=== PATIENT | male | born 1940 | race Caucasian/White ===

== ENCOUNTER 2016-12-01 03:40 | Emergency (ER) | payer MEDICARE, BC ==
[2016-12-01] MEDS ORDERED: SODIUM CHLORIDE 0.9% 1000ML 1,000 ML IVS ONE (04:05)
--- NOTE | 2016-12-01 04:11 | ED.PDOC ---
History of Present Illness - General Chief Complaint: Neuro Symptoms/Deficits Stated Complaint: ALTERED MENTAL STATUS Time Seen by Provider: 12/01/16 04:04 Source: patient, family Exam Limitations: no limitations Additional Information: 3 D OF HALLUCINATING, WORSENING OVER PAST 3 D. WAS TALKING ABOUT BEING AT THE [employer] TONIGHT. NO KNOWN PSYCH HX OF HALLUCINATIONS. STATES HE FELL AND HIT HEAD 1 WK AGO BUT WAS FINE FOR 4 D AFTERWARD. DENIES ETOH OR ILLICITS. HE TAKES 2 NORCO QDAY FOR LBP. SHE STATES HIS MOTHER DEVELOPED DEMENTIA IN HER 60'S UNTIL IN 90'S. - History of Present Illness Allergies/Adverse Reactions: Allergies Methotrexate Allergy (Verified 12/01/16 03:49) Home Medications: Ambulatory Orders Amoxicillin & Pot Clavulanate [Augmentin] 875 mg PO BID #20 tab 12/01/16 Review of Systems - Review of Systems Constitutional: States: no symptoms reported EENTM: States: no symptoms reported Respiratory: States: cough. Denies: short of breath Cardiology: States: no symptoms reported Gastrointestinal/Abdominal: States: no symptoms reported Genitourinary: States: no symptoms reported Musculoskeletal: States: no symptoms reported Skin: States: no symptoms reported Neurological: Denies: headache, paresthesia, pre-existing deficit Endocrine: States: no symptoms reported Hematologic/Lymphatic: States: no symptoms reported All other Systems: Reviewed and Negative Past Medical History (General) - Patient Medical History Hx Seizures: No Hx Asthma: No Hx of COPD: No Hx Cardiac Disorders: Yes Hx Congestive Heart Failure: No Hx Pacemaker: No Hx Hypertension: Yes Hx Diabetes: Yes Hx Cancer: No Hx Hepatitis C: No - Vaccination History Hx Tetanus, Diphtheria Vaccination: No Hx Influenza Vaccination: Yes Hx Pneumococcal Vaccination: Yes Immunizations Up to Date: No - Social History Hx Alcohol Use: Yes - OCC Hx Substance Use: No Family Medical History - Family History Mother Family History: Unknown Physical Exam - Physical Exam General Appearance: Alert, Comfortable Eye Exam: bilateral normal ENT Exam: normal ENT inspection, hearing grossly normal Neck: non-tender, full range of motion Respiratory: other - LUNGS CLEAR BUT DIMINISHED ON BL BASES. 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 CT HEAD SINUSITIS (NO STROKE OR MASS). STARTING AUGMENTIN. CBC - LEUKOCYTOSIS ACUTE DELIRIUM - D/T INFECTION. ( STATES SIMILAR DELIRIUM IN PAST WHEN DEVELOPED IFXN.) CMP - ARF, DEHYDRATION. BOLUS IN PROCESS. ABX. CLOSE F/U W/ PCP. SAFE FOR DC TO HOME WITH , WHO IS PRESENT. - EKG/XRAY/CT CT Ordered: Yes Departure - Departure Clinical Impression: Sinusitis, acute, Dehydration, Leukocytosis, Acute renal failure (ARF), Delirium due to another medical condition Disposition: Discharge to Home or Self Care Condition: Good Departure Forms: ED Discharge - Pt. Copy, Patient Portal Self Enrollment Instructions: Delirium Diet: regular diet Activity: increase activity as tolerated Referrals: Regis Page III, MD [Primary Care Provider] - 1-2 Days Prescriptions: Amoxicillin & Pot Clavulanate [Augmentin] 875 mg PO BID #20 tab Home Medications: Ambulatory Orders Amoxicillin & Pot Clavulanate [Augmentin] 875 mg PO BID #20 tab 12/01/16
--- NOTE | 2016-12-01 04:21 | RAD ---
Clinical History : diminished lung sounds, and cold/congestion , MAIN Exam : Portable AP view of the chest 12/01/2016 3:58 AM CDT Comparisons : PA and lateral views of the chest March 09, 2012 Findings : The lungs are clear without focal consolidation or pleural effusion. The heart is normal in size. The mediastinal contours are normal in appearance. There are vascular calcifications along the aortic arch. There is a vertebral body spacer device in the mid thoracic spine. The rest of the osseous structures are normal in appearance. Limited evaluation of the upper abdomen demonstrates no gross abnormalities. Impression: 1. No acute cardiopulmonary disease. 2. Stable thoracic spine hardware. Electronically signed by: Jairon Hua MD 12/01/2016 4:20 AM CDT
--- NOTE | 2016-12-01 04:25 | CT ---
Clinical History : fell a week ago, hallucinations today , MAIN Exam : CT Head without contrast 12/01/2016 3:50 AM CDT Comparisons : none. Technique : Volumetric CT acquisition was performed through the brain. Images in the axial, coronal, and sagittal planes were presented for interpretation. This exam was performed according to our departmental dose-optimization program, which includes automated exposure control, adjustment of the mA and/or kV according to patient size and/or use of iterative reconstruction technique. Radiation dose : DLP-773.97 Findings: The soft tissue structures of the face, scalp, and orbits are normal. The globes remain intact. There is circumferential mucosal thickening within the bilateral maxillary sinuses and ethmoid air cells. There is also mucosal thickening throughout the sphenoid sinuses.. The calvarium remains intact . There is no acute intracranial hemorrhage, midline shift, or mass effect. The ventricles are normal in size and the posterior fossa structures are normal in appearance. There is mild generalized brain atrophy. There are moderate periventricular and subcortical white matter changes throughout the bilateral cerebral hemispheres. Limited evaluation of the vasculature demonstrates no gross abnormalities. There is no CT evidence of acute infarction. Impression: 1. No acute intracranial process. 2. Generalized brain atrophy and small vessel ischemic changes. 3. Sinus disease. Electronically signed by: Jairon Hua MD 12/01/2016 4:24 AM CDT
[2016-12-01] MEDS ORDERED: AMOXICILLIN & POT CLAVULANATE 875 MG TAB PO ONE (05:44)
[2016-12-01] MEDS ORDERED: cefTRIAXone SODIUM 1 GM VIAL IM ONE (05:56)
[2016-12-01] MEDS ORDERED: cefTRIAXone SODIUM 1 GM VIAL ONE (05:57)
[2016-12-01] MEDS ORDERED: LIDOCAINE 1% 10 ML VIAL INJ ONE (05:58)
[2016-12-01 06:24] VITALS: BP 109/71; TEMP 99.2; O2SAT 96
== END 2016-12-01 06:28 | disposition home or self-care (01) ==
LOC: ER 03:40
DX: J01.90 Acute sinusitis, unspecified (principal); D72.829 Elevated white blood cell count, unspecified; E86.0 Dehydration; N17.9 Acute kidney failure, unspecified; F05 Delirium due to known physiological condition; I10 Essential (primary) hypertension; E11.9 Type 2 diabetes mellitus without complications; Z88.8 Allergy status to other drugs, medicaments and biological substances
CPT/HCPCS: 70450; 71010; 80053; 80307; 85025; 93005; J0696; J7030

== ENCOUNTER 2016-12-01 08:47 | Inpatient (IN) | payer MEDICARE, BC ==
--- NOTE | 2016-12-01 09:12 | ED.PDOC ---
History of Present Illness - General Chief Complaint: Neuro Symptoms/Deficits Stated Complaint: altered mental status Time Seen by Provider: 12/01/16 09:11 Source: family Exam Limitations: no limitations - History of Present Illness Initial Comments: Mr. Alvaro Waters 76 y/o male with history of CAD,Polymyalgia Rheumatica DM on insulin Brought back by after he was sent home last night from er with Dx of sinusitis,leukocytosis,delirium and ststed once home he was stating that children was soaking their house wet with water spray tearing up their carpets as well as their fence and told his to call up the tailor women's garment alteration.Prior to the first time he was brought to er earlier he was throwing his insulin syringe and insulin vial as mentioning that he saw kids playing and nothing was there.Last week fell and hit his head but no loc,felt fine no medical attention done denies any symptoms until 3 days ago when he started seeing things as mentioned above.Had same symptoms 2 year ago according to and got better.Blood sugar taken by ems was normal. 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 Home Medications: Ambulatory Orders Amoxicillin & Pot Clavulanate [Augmentin] 875 mg PO BID #20 tab 12/01/16 Aspirin [Aspirin Adult Low Dose] 81 mg PO DAILY 12/01/16 Atenolol [Tenormin] 25 mg PO SUWE 12/01/16 Atorvastatin Calcium [Lipitor] 10 mg PO SUWE 12/01/16 Clopidogrel Bisulfate [Plavix] 75 mg PO DAILY 12/01/16 Duloxetine HCl [Cymbalta] 60 mg PO BID 12/01/16 HYDROcodone 10MG/APAP 325MG [Hancock 10/325] 1 tab PO Q4HR PRN 12/01/16 Insulin Glargine [Lantus Solostar] 30 unit SC BEDTIME 12/01/16 Insulin Regular (Human) [Novolin R U-100] 6 unit SUBCU TIDFD 12/01/16 Prednisone 5 - 10 mg PO DAILY 12/01/16 Review of Systems - Review of Systems Constitutional: States: no symptoms reported EENTM: States: no symptoms reported Respiratory: States: no symptoms reported Cardiology: States: no symptoms reported Gastrointestinal/Abdominal: States: no symptoms reported Genitourinary: States: no symptoms reported Musculoskeletal: States: no symptoms reported Skin: States: no symptoms reported Neurological: States: see HPI Endocrine: States: no symptoms reported Hematologic/Lymphatic: States: no symptoms reported Past Medical History (General) - Patient Medical History Hx Seizures: No Hx Asthma: No Hx of COPD: No Hx Cardiac Disorders: Yes Hx Congestive Heart Failure: No Hx Pacemaker: No Hx Hypertension: Yes Hx Diabetes: Yes Hx Cancer: No Hx Hepatitis C: No 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 Hx Other - free text: peripheral artery disease Surgical History: other Other Surgeries:: thoracic spine,cardiac stent,stent femoral artery - Vaccination History Hx Tetanus, Diphtheria Vaccination: No Hx Influenza Vaccination: Yes Hx Pneumococcal Vaccination: Yes - Social History Hx Tobacco Use: No Hx Chewing Tobacco Use: No Hx Alcohol Use: Yes - OCC Hx Substance Use: No - Activities of Daily Living Patient Lives Alone: No - home Family Medical History - Family History Mother Family History: Unknown Hx Family Cancer: Yes - brother Hx Family;Other: Rheumatoid arthritis-sister;mom -dementia Physical Exam - Physical Exam General Appearance: Alert, No apparent distress Eye Exam: bilateral normal, bilateral other - matting both eyes ENT Exam: normal ENT inspection, hearing grossly normal, TMs normal, pharynx normal Neck: non-tender, full range of motion, supple, normal inspection Respiratory: chest non-tender, lungs clear, normal breath sounds, no respiratory distress Cardiovascular/Chest: normal peripheral pulses, regular rate, rhythm, no edema, no gallop, no JVD, no murmur Peripheral Pulses: radial,right: 2+, radial,left: 2+ Gastrointestinal/Abdominal: normal bowel sounds, non tender, soft, no organomegaly, no pulsatile mass Back Exam: normal inspection, no CVA tenderness, no vertebral tenderness Extremities Exam: non-tender, normal range of motion, no evidence of injury Mental Status: alert, oriented x 3, 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 Exam: normal hearing, normal speech, PERRL Motor/Sensory: no motor deficit, no sensory deficit, no pronator drift DTR: 4+: Biceps, left, Biceps, right Skin Exam: normal color, warm/dry Progress - Results/Orders Results/Orders: 12/01/16 08:54 Catheter:Straight .ONCE 12/01/16 09:30 BLOOD CULTURE Stat 12/01/16 09:46 Lumbar Puncture,Assist ONCE 12/01/16 11:55 CSF CULTURE Stat 12/01/16 12:22 GRAM STAIN Stat 12/01/16 12:31 Sodium Chloride 0.9% 500Ml [NS 500ml] 500 ml IVS .QD 12/01/16 12:47 Vancomycin HCl Inj 1,000 mg Sodium Chloride 0.9% 250Ml [NS 250ml] 250 ml IVPB ONCE 12/01/16 13:00 Acyclovir Sodium Injection [Zovirax Injection] 1,000 mg Sodium Chloride 0.9% 250Ml [NS 250ml] 250 ml IVPB Q8H Laboratory Results WBC 13.8 K/mm3 (4.8-10.8) H 12/01/16 09:30 RBC 4.51 M/mm3 (4.70-6.10) L 12/01/16 09:30 Hgb 12.9 gm/dL (14.0-18.0) L 12/01/16 09:30 Hct 39.6 % (42.0-52.0) L 12/01/16 09:30 MCV 87.9 fl (80.0-94.0) 12/01/16 09:30 MCH 28.6 pg (27.0-31.0) 12/01/16 09:30 MCHC 32.4 g/dL (33.0-37.0) L 12/01/16 09:30 RDW 17.7 % (11.5-14.5) H 12/01/16 09:30 Plt Count 216 K/mm3 (130-400) 12/01/16 09:30 MPV 7.7 fl (7.40-10.4) 12/01/16 09:30 Absolute Neuts (auto) 10.50 K/uL (1.8-6.8) H 12/01/16 09:30 Absolute Lymphs (auto) 2.20 K/uL (1.0-3.4) 12/01/16 09:30 Absolute Monos (auto) 1.00 K/uL (0.2-0.8) H 12/01/16 09:30 Absolute Eos (auto) 0.10 K/uL (0.0-0.4) 12/01/16 09:30 Absolute Basos (auto) 0.10 K/uL (0.0-0.1) 12/01/16 09:30 Neutrophils % 76.1 % (42.0-78.0) 12/01/16 09:30 Lymphocytes % 15.9 % (20.0-50.0) L 12/01/16 09:30 Monocytes % 7.0 % (2.0-9.0) 12/01/16 09:30 Eosinophils % 0.6 % (1.0-5.0) L 12/01/16 09:30 Basophils % 0.4 % (0.0-2.0) 12/01/16 09:30 PT 11.2 SECONDS (9.4-12.5) 12/01/16 09:14 INR 0.990 12/01/16 09:14 Sodium 139 mmol/L (135-145) 12/01/16 09:30 Potassium 3.8 mmol/L (3.6-5.0) 12/01/16 09:30 Chloride 105 mmol/L (101-111) 12/01/16 09:30 Carbon Dioxide 26 mmol/L (21-31) 12/01/16 09:30 Anion Gap 11.8 (12-18) L 12/01/16 09:30 BUN 29 mg/dL (7-18) H 12/01/16 09:30 Creatinine 1.45 mg/dL (0.6-1.3) H 12/01/16 09:30 BUN/Creatinine Ratio 20.0 (10-20) 12/01/16 09:30 Random Glucose 195 mg/dL (70-105) H D 12/01/16 09:30 Serum Osmolality 288.7 mOsm/L (275-295) 12/01/16 09:30 Lactic Acid 1.5 mmol/L (0.5-2.2) 12/01/16 09:30 Calcium 8.8 mg/dL (8.4-10.2) 12/01/16 09:30 Total Bilirubin 0.4 mg/dL (0.2-1.0) 12/01/16 09:30 AST 24 IU/L (10-42) 12/01/16 09:30 ALT 32 IU/L (10-60) 12/01/16 09:30 Alkaline Phosphatase 81 IU/L (42-121) 12/01/16 09:30 Troponin I < 0.02 ng/mL (0.01-0.05) 12/01/16 09:52 B-Natriuretic Peptide 16.4 pg/ml (0-100) 12/01/16 09:49 Serum Total Protein 6.6 gm/dL (6.4-8.2) 12/01/16 09:30 Albumin 2.7 g/dl (3.2-5.5) L 12/01/16 09:30 Globulin 3.9 gm/dL (2.3-3.5) H 12/01/16 09:30 Albumin/Globulin Ratio 0.7 (1.1-1.9) L 12/01/16 09:30 Urine Color Yellow (Yellow) 12/01/16 08:54 Urine Appearance Clear (Clear) 12/01/16 08:54 Urine pH 5.5 (4.5-7.8) 12/01/16 08:54 Ur Specific Amelia 1.020 (1.005-1.030) 12/01/16 08:54 Urine Protein 30 mg/dL 12/01/16 08:54 Urine Glucose (UA) 100 mg/dL (Negative) H 12/01/16 08:54 Urine Ketones Negative mg/dL (NEGATIVE) 12/01/16 08:54 Urine Blood Trace-intact (Negative) H 12/01/16 08:54 Urine Nitrite Negative 12/01/16 08:54 Urine Bilirubin Negative (NEGATIVE) 12/01/16 08:54 Urine Urobilinogen 0.2 mg/dL (0.2-1.0) 12/01/16 08:54 Ur Leukocyte Esterase Negative (Negative) 12/01/16 08:54 Urine RBC 0 /hpf 12/01/16 08:54 Urine WBC 0 /hpf 12/01/16 08:54 Ur Epithelial Cells 0 /hpf 12/01/16 08:54 Amorphous Sediment Trace 12/01/16 08:54 Urine Bacteria 0 12/01/16 08:54 CSF Appearance Clear (CLEAR) 12/01/16 11:55 CSF Color Colorless (COLORLESS) 12/01/16 11:55 CSF WBC 2 /mm3 (0-5) 12/01/16 11:55 CSF RBC 346 /mm3 12/01/16 11:55 CSF Neutrophils 0.0 % 12/01/16 11:55 CSF Lymphocytes 100.0 % 12/01/16 11:55 CSF Glucose 104 mg/dL (40-70) H* 12/01/16 11:55 CSF Total Protein 22.8 mg/dL (15-45) 12/01/16 11:55 Stool Occult Blood Negative 12/01/16 09:55 - EKG/XRAY/CT EKG: Sinus, no ST T wave changes Comments: heart rate 90 done early am Procedures - Additional Procedures Additional Procedures: lumbar puncture - after getting informed consent and explaining possible complication ASIS was palpated and space between L5 L4 marked area was cleansed thoroughly with betadine then lidocaine was used to anesthetize area 4 attempts were made until space was able to flow initally slightly bloody tap but cleeared up and obtained 4 vials of csf 2cc each vial opening pressure 5cm H20 sent for csf analysis Stroke Information - Onset of Symptoms Stroke Onset of Symptoms Date: 12/01/16 - no stroke Departure - Departure Clinical Impression: Hallucinations, Renal insufficiency Altered mental state Qualifiers: Altered mental status type: unspecified Qualifier Code: (R41.82) Altered mental status, unspecified Time of Disposition: 13:46 - D/W Chris [id number] Disposition: Admit Patient Condition: Fair Departure Forms: Patient Portal Self Enrollment Home Medications: Ambulatory Orders Amoxicillin & Pot Clavulanate [Augmentin] 875 mg PO BID #20 tab 12/01/16 Aspirin [Aspirin Adult Low Dose] 81 mg PO DAILY 12/01/16 Atenolol [Tenormin] 25 mg PO SUWE 12/01/16 Atorvastatin Calcium [Lipitor] 10 mg PO SUWE 12/01/16 Clopidogrel Bisulfate [Plavix] 75 mg PO DAILY 12/01/16 Duloxetine HCl [Cymbalta] 60 mg PO BID 12/01/16 HYDROcodone 10MG/APAP 325MG [Hancock 10/325] 1 tab PO Q4HR PRN 12/01/16 Insulin Glargine [Lantus Solostar] 30 unit SC BEDTIME 12/01/16 Insulin Regular (Human) [Novolin R U-100] 6 unit SUBCU TIDFD 12/01/16 Prednisone 5 - 10 mg PO DAILY 12/01/16
[2016-12-01] MEDS ORDERED: SODIUM CHLORIDE 0.9% 500ML 500 ML IVS ONE (10:31)
[2016-12-01] MEDS ORDERED: SODIUM CHLORIDE 0.9% 500ML 500 ML IVS PRN (12:31)
[2016-12-01] MEDS ORDERED: cefTRIAXone SODIUM 1 GM in SODIUM CHL 0.9% 50ML MIN-BAG+ 50 ML IVPB ONE (12:46)
[2016-12-01] MEDS ORDERED: VANCOMYCIN HCL INJ 1,000 MG in SODIUM CHLORIDE 0.9% 250ML 250 ML IVPB ONE (12:47)
[2016-12-01] MEDS ORDERED: ACYCLOVIR SODIUM INJECTION 1,000 MG in SODIUM CHLORIDE 0.9% 250ML 250 ML IVPB SCH (13:00)
[2016-12-01] MEDS ORDERED: cefTRIAXone SODIUM 1 GM VIAL ONE ×2 (13:40→19:37)
[2016-12-01] MEDS ORDERED: VANCOMYCIN HCL INJ 1,000 MG VIAL IVPB ONE (13:40)
[2016-12-01] MEDS ORDERED: SODIUM CHL 0.9% 50ML MIN-BAG+ 50 ML IVPB ONE ×2 (13:40→19:37)
[2016-12-01] MEDS ORDERED: SODIUM CHLORIDE 0.9% 250ML 250 ML ONE ×3 (13:40→19:39)
--- NOTE | 2016-12-01 14:48 | HP ---
SUPERVISING PHYSICIAN: Prabhu Haque M.D. CHIEF COMPLAINT: Altered mental status. HISTORY OF PRESENT ILLNESS: Mr. Waters is a 76 year-old male patient that initially was seen in the Emergency Department on the same day of admission multiple times. On the first visit, he was seen early in the night and diagnosed with sinusitis, leukocytosis, delirium with the stated that once he was discharged he started having severe hallucinations seeing children soaking his house with a water hose, tearing up carpets and their fence to the extent that he told his to call the space technologist. On the initial visit, he noted that he was actually throwing his insulin syringes and insulin bottles at the kids he saw playing. He does have a significant history of having polymyalgia rheumatica, diabetes mellitus on insulin and in the last week had a fall at home same level, but no loss of consciousness. He said he felt fine, therefore did not seek any medical attention. Approximately 3 days after the fall is when he started seeing things. His noted he had symptoms 2 years previous and according to her got better. This morning on readmission, he presented to the Emergency Department 911 after his was afraid to transport the patient due to his severe hallucinations. After a review of his medical records, it was noted he also has a history of myelodysplasic syndrome and is followed by Dr. Yuan. He does run a high white count on a normal basis. It appears to be between 14,000 and 16,000 at times. In the Emergency Room, his laboratories initially showed that he had a white count of 13.8 which is actually lower than when he initially presented to the Emergency Department. Early this morning it was 16,000. Differential did show bands 21% on initial visit, however differential the second time around showed to be within normal limits on the differential. On the first visit to the Emergency Department, he was diagnosed with sinusitis and sent home on Amoxicillin after being given an injection of Rocephin. On the repeat visit, he had additional laboratory studies that showed his initial chemistries to show potassium 3.8, BUN 29, creatinine 1.45. Review of past labs within the last year show that his baseline on his creatinine has been anywhere from 1.38 up to 1.7. Liver functions showed to be within normal limits with an ammonia level of 12. TSH was within normal limits. Urinalysis showed no evidence of infectious process. He then had a spinal tap performed by Dr. Valadez in the Emergency Department and initial workup showed that it was clear in color with only 2 WBCs, 346 RBCs with 100% lymphocytes. Glucose was high at 104 with a normal protein of 22.8. The additional testing included culture of both bacterial and viral cultures and a gram stain with the gram stain demonstrating no bacteria and no WBCs. Vital signs showed him to be hemodynamically stable with blood pressure 118/65, pulse rate 80, respiratory rate 16, satting 92% on room air. He was afebrile on initial presentation with a temperature of 98.3. Given that he was having significant hallucinations but appeared to be oriented with hallucinations and the unknown etiology, initial treatment in the Emergency Department consisted of Acyclovir, IV Rocephin and vancomycin. I was contacted by Dr. Valadez who requested the patient be placed in Observation at least for close monitoring and continued workup to further investigate possible causes for his ongoing hallucinations. It was noted that the patient does take Hydrocodone 3 times a day as needed for back pain, but per his he is taking his medicines no more than prescribed. His noted that they had not been out of the country but they had been to [place] within the last several weeks. The patient is now to be placed in Observation and is in stable condition for continuation of treatment and evaluation. PAST MEDICAL HISTORY: 1. Myocardial infarction in 2000 with stent placement. 2. Diverticulosis. 3. Renal stones first in 2001. 4. Elevated PSA in 2005. 5. Polymyalgia rheumatica diagnosed in 2003. 6. Type 2 diabetes requiring insulin. 7. Seizure disorder with the last seizure being a grand mal seizure that was documented in the s. 8. Diabetic neuropathies. 9. 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 PAST SURGICAL HISTORY: 1. Tonsillectomy in 6. 2. Vasectomy times 2 in 1969 and 1970. 3. Cervical fusion with a hip Allograft in 1978. 4. Carpal tunnel syndrome in 1979. 5. Right rib removal in 1980 and 1984. 6. Left knee surgery in 1979 and then again in 2012 for meniscus, and once again in 2013 for a partial knee replacement. 7. Cervical fusion with cadaver bone graft in 1994. 8. Coronary artery stent placement in 2004. 9. Injections to his lower back in 2003. 10. T5 through T6 vertebrectomy in 2008. HOME MEDICATIONS: 1. Atorvastatin 10 mg 1 tablet by mouth every Sunday and Sunday. 2. Lisinopril 2.5 mg on Sunday and Sunday. 3. Duloxetine 60 mg at least 1 twice daily. 4. Humulin R 4 units 3 times a day with each meal. 5. Atenolol 25 mg 1 tablet at nighttime on Sunday and Sunday. 6. Hydrocodone 10/325 one tablet daily p.r.n. for pain. 7. Lantus 100 units injection 30 units at h.s. 8. Prednisone 5 mg 1 to 2 tablets every day. ALLERGIES: METHOTREXATE. FAMILY HISTORY: Father at age 96 from advanced age. Mother is at 94 secondary to complications of dementia. 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 He lives on the [place] [facility]. He is . He is a current smoker, smokes approximately 1 pack per day. He drinks alcohol very infrequently. REVIEW OF SYSTEMS: Difficult to obtain from the patient, although he does answer yes or no questions, primarily reported from his . CONSTITUTIONAL: She denies he had any fever or chills, or unintentional weight loss. HEENT: He notes that he has had left ear pain and has had conjunctivitis that initially started this past Sunday and has had some nasal congestion, but no drainage. CHEST: No cough, shortness of breath, hemoptysis. CARDIOVASCULAR: No reported chest pains, dizziness or syncopal episodes. GASTROINTESTINAL: No nausea, vomiting or diarrhea. GENITOURINARY: Denies any dysuria, hematuria or other urinary symptoms. NEUROLOGIC: As noted in the History of Present Illness. The patient has been having visual hallucinations for the last 3 to 4 days. PHYSICAL EXAMINATION: VITAL SIGNS: Temperature 98.5, pulse 92, blood pressure 129/69, respirations 20 , O2 sat 94% on room air. Admission weight 69.8 kg. GENERAL: The patient is very unkempt and disheveled. He appears to be in no distress, but he is obviously having hallucinations, picking at things, talking to people that are not there, but appears to be in no acute distress. HEENT: Tympanic membranes are clear bilaterally. There is no notable lesions or drainage. Oropharynx is pink. Mucosal membranes look dry. Bilateral conjunctiva are red with notable matting to both eyelids. NECK: Supple without any pain on palpation. Full range of motion. No jugular venous distention. CHEST: Lungs are clear to auscultation bilaterally without any rhonchi, wheezing or rales noted. CARDIOVASCULAR: Regular rate and rhythm without appreciable murmurs, gallops, or rubs. ABDOMEN: Normal bowel sounds, soft. Bowel sounds are present. Abdomen is non- tender. EXTREMITIES: No clubbing, cyanosis or edema. NEUROLOGIC: He does know his location and he is fairly alert. Cranial nerves II-XII are grossly intact. Facial features are symmetrical. Extraocular movements are within normal limits. There is no nystagmus. There are no discernible localizing neuromotor deficits. PSYCHIATRIC: The patient is having obvious visual hallucinations. LABORATORY: White count 13.8, hemoglobin 12.9, hematocrit 39.6, platelet count 216,000. Differential showed to be within normal limits without a left shift. Coagulation studies showed normal PT of 11.2. Chemistries show normal electrolytes with potassium 3.8, BUN 29, creatinine 1.45, glucose 195. Lactic acid 1.5, calcium 8.8, magnesium 2.3. All other liver function showed to be within normal limits. Ammonia was 12. Troponin less than 0.02. BNP 16.4. Serum folate greater than 23.3, TSH was 0.79. Urinalysis straight catheter showed 100 glucose, trace of intact blood, otherwise within normal limits. Spinal fluid analysis showed fluid to be clear in color with 2 WBCs, 346 RBCs, zero neutrophils, 100% lymphocytes. Glucose 104, total protein 22.8. Stool occult blood was negative. RPR was nonreactive. West Nile IgM and IgG are pending. MICROBIOLOGY: Gram stain of CSF - no WBCs or bacteria seen. He has a CSF viral culture and bacterial culture pending. Two blood cultures pending. RADIOLOGY: Chest x-ray at 4:00 this morning on initial admission per radiology interpretation showed no acute cardiopulmonary, stable thoracic spine hardware. He had a CT of the head earlier in the E. R. at 4:00 on first admission and per radiology interpretation showed no acute intracranial processes, just generalized brain atrophy and small vessel ischemic changes with sinus disease. Brain MRI on admission to the Medical/Surgical floor was completed and per radiology interpretation was noted there was no abnormal increased signal intensity to suggest diffuse or acute infarction. Also of note was a T2 FLAIR weighted image that reveals multifocal areas of patchy increased signal densities present in the subcortical and periventricular deep white matter distribution and nonspecific finding, however could be seen with small vessel ischemic changes. There is also note of extensive paranasal sinus disease and diffuse smooth and mild suspected dural enhancement with differential to include chronic subdural hematoma less commonly meningitis or sarcoidosis and less likely hypotropic parenchymal meningitis given the lack of thickening. Please refer to that report for full details. ASSESSMENT: 1. Altered mental status, unknown etiology. 2. Extensive paranasal sinus disease. 3. Leukocytosis with a history of having myelodysplastic syndrome with a chronic elevated white count. 4. Renal insufficiency, chronic. 5. Type 2 diabetes mellitus on insulin therapy. 6. History of chronic lower back pain with multiple surgeries on chronic pain medication possibly exacerbating number 1. 7. History of diverticulosis. 8. History of polymyalgia rheumatica. 9. Bilateral acute conjunctivitis likely bacterial in origin. PLAN: The patient will be placed in Observation tonight. He was started on Acyclovir in the Emergency Department. This will be continued along with Rocephin for treatment of the underlying maxiallry sinus infection and concerns for possible viral meningitis or encephalopathy. Will also await final culture results and serology testing to include testing for herpes simplex virus and serum IgG and IgnM -West Nile virus. Will provide fall precautions and closely monitor the patient. He will have every 4 hours neurologic checks. Plan to start him on some IV fluids to assist with improvement of his renal function. Anticipate current length of stay to be about 1 to 2 days depending on clinical reassessment and followup laboratory studies in the morning. Until discharge, will continue to monitor the patient closely and treat appropriately. #[id number] and [id number] [facility]
[2016-12-01] MEDS ORDERED: ACYCLOVIR SODIUM INJECTION 500 MG VIAL ONE ×2 (14:59→19:39)
--- NOTE | 2016-12-01 16:47 | MRI ---
EXAM: Brain w/wo Contrast CLINICAL INDICATION: 76-year-old male with possible viral encephalitis. COMPARISON: Noncontrast CT brain 12/01/2016. TECHNIQUE: Multiplanar, multi-sequence MR imaging of the brain pre-and post intravenous administration of gadolinium. FINDINGS: No abnormal increased signal intensity is present on diffusion-weighted imaging to suggest restricted diffusion/acute infarction. T2/flair weighted imaging reveals multifocal areas of patchy increased signal intensity present in a subcortical and periventricular deep white matter distribution, a nonspecific finding however may be seen with small vessel ischemic change. T2-weighted imaging additionally reveals a wedge-shaped focal area of increased signal intensity in the LEFT cerebellum compatible with sequela of prior infarction. There is no evidence of intracranial hemorrhage, mass or edema. Midline structures are within normal limits. Postcontrast imaging reveals diffuse, however smooth and mild dural enhancement, a nonspecific finding which may be seen in the setting of chronic subdural hematoma less commonly meningitis, sarcoidosis, less likely hypertrophic pachymeningitis given lack of thickening. The ventricles and sulci are slightly prominent suggesting underlying volume loss. Slight prominence of the bifrontal extra-axial space suggestive of volume loss versus subdural hygroma with possibility of chronic subdural hematoma considered less likely. Major intracranial flow voids are identified. The paranasal sinuses reveal diffuse enhancement and severe mucosal thickening of the bilateral maxillary sinuses and near complete opacification of the sphenoid sinuses and ethmoid air cells. Patent appearance of the frontal sinuses and RIGHT side mastoid air cells are patent. Patchy opacification of the LEFT side mastoid air cells. IMPRESSION: 1. No abnormal increased signal intensity is present on diffusion-weighted imaging to suggest restricted diffusion/acute infarction. 2. T2/flair weighted imaging reveals multifocal areas of patchy increased signal intensity present in a subcortical and periventricular deep white matter distribution, a nonspecific finding however may be seen with small vessel ischemic change. 3. Extensive paranasal sinus disease. 4. Diffuse smooth and mild suspected dural enhancement with differential and details as above. Electronically signed by: Kathy Fox MD 12/01/2016 4:46 PM CDT
[2016-12-01] MEDS ORDERED: DEXTROSE 50% 25 GM/50 ML SYG IV PRN (17:18)
[2016-12-01] MEDS ORDERED: ACETAMINOPHEN 325 MG TAB PO PRN (17:18)
[2016-12-01] MEDS ORDERED: GLUCAGON INJ 1 MG VIAL SUBCU PRN (17:18)
[2016-12-01] MEDS ORDERED: SODIUM CHLORIDE 0.9% (FLUSH) 10 ML SYG IV PRN (17:18)
--- NOTE | 2016-12-01 18:56 | PCM.CORE ---
Physician DVT/VTE - Nurse DVT Assessment & Total Each Risk Factor Represents 3 Points: Age over 75 years Each Risk Factor Represents 1 Point: Medical PT at Bed Rest DVT Assessment Score: 4 - 3-4 High Risk Treatments: Early Ambulation *, Sequential Compression Device Pharmacological: Enoxaparin 40 mg SQ Daily
[2016-12-01] MEDS: IV SET AND CAP CHANGE INJ INJ SCH ×2 (19:34→19:53)
[2016-12-01] MEDS ORDERED: DULoxetine HCL 30 MG CAP PO ONE (19:37)
[2016-12-01] MEDS: KCL 20 MEQ/NS 1,000 ML IVS PRN (19:52)
[2016-12-01] MEDS: ENOXAPARIN SODIUM 40 MG/0.4 ML SYG SUBCU SCH (20:40)
[2016-12-01] MEDS ORDERED: SODIUM CHLORIDE 0.9% (FLUSH) 10 ML SYG IV SCH (21:00)
[2016-12-01] MEDS ORDERED: NON-FORMULARY MEDICATION 1 EA MIS (Duloxetine Hcl [Cymbalta] 60 MG) PO SCH (21:00)
[2016-12-01] MEDS: INSULIN LISPRO 100 UNITS/ML PEN SUBCU SCH (21:07)
[2016-12-01] MEDS: ACYCLOVIR SODIUM INJECTION 1,000 MG in SODIUM CHLORIDE 0.9% 250ML 250 ML IVPB SCH (23:43)
[2016-12-02] MEDS ORDERED: cefTRIAXone SODIUM 1 GM in SODIUM CHL 0.9% 50ML MIN-BAG+ 50 ML IVPB SCH ×2 (01:00→23:00)
[2016-12-02] MEDS ORDERED: DULoxetine HCL 30 MG CAP PO ONE (07:32)
[2016-12-02] MEDS ORDERED: ACYCLOVIR SODIUM INJECTION 500 MG VIAL ONE ×3 (07:33→19:11)
[2016-12-02] MEDS ORDERED: SODIUM CHLORIDE 0.9% 250ML 250 ML ONE ×3 (07:33→19:11)
[2016-12-02] MEDS: INSULIN LISPRO 100 UNITS/ML PEN SUBCU SCH ×4 (07:45→20:57)
[2016-12-02] MEDS: KCL 20 MEQ/NS 1,000 ML IVS PRN (07:48)
[2016-12-02] MEDS: ACYCLOVIR SODIUM INJECTION 1,000 MG in SODIUM CHLORIDE 0.9% 250ML 250 ML IVPB SCH (07:50)
[2016-12-02] MEDS ORDERED: ACYCLOVIR SODIUM INJECTION 1,000 MG in SODIUM CHLORIDE 0.9% 250ML 250 ML IVPB SCH (08:00)
[2016-12-02] MEDS ORDERED: HALOPERIDOL LACTATE INJ 5 MG/ML VIAL IM ONE (08:37)
--- NOTE | 2016-12-02 09:27 | RAD ---
PROCEDURE: XR CHEST 1 VIEW HISTORY: elevated WBC unknown etiology COMPARISON: 12/01/2016 and 03/09/2012 TECHNIQUE: Single projection of the chest was done. FINDINGS: There is stable position of the radiopaque cylindrical device projected over the mid thoracic spine, unchanged since 03/09/2012 There are no discrete airspace infiltrates, pneumothoraces or pleural effusions. The pulmonary vascularity is normal. The cardiomediastinal silhouette is unremarkable for patient's age and sex. IMPRESSION: There is no acute pleural-parenchymal process seen in the imaged lung gomez. There is stable position of the radiopaque cylindrical device projected over the mid thoracic spine, unchanged since 03/09/2012. Electronically signed by: Shiva Francisco MD 12/02/2016 9:26 AM CDT
[2016-12-02] MEDS: CIPROFLOXACIN 0.3% BOTH_EYES SCH ×4 (09:41→20:42)
[2016-12-02] MEDS: OPTHALMIC BOTH_EYES SCH ×4 (09:41→20:42)
[2016-12-02] MEDS: DULoxetine HCL 30 MG CAP PO SCH ×2 (09:44→20:42)
[2016-12-02] MEDS: CLOPIDOGREL 75 MG TAB PO SCH (09:44)
[2016-12-02] MEDS: ASPIRIN EC 81 MG TAB PO SCH (09:44)
[2016-12-02] MEDS: SODIUM CHLORIDE 0.9% IVPB SCH ×2 (15:44→23:34)
[2016-12-02] MEDS: ACYCLOVIR SODIUM IVPB SCH ×2 (15:44→23:34)
--- NOTE | 2016-12-02 15:47 | PN ---
DATE: 12/02/16 SUPERVISING PHYSICIAN: Prabhu Haque M.D. SUBJECTIVE: The patient continues to have some hallucinations today. He did have a fall this morning after he had several attempts to get out of bed and before the nurses could attend to him, he had urinated and defecated in the floor and fallen. The only injuries noted were skin tears to both arms. He reportedly did not lose any consciousness and complained of not other complaints. He remains afebrile and hemodynamically stable. OBJECTIVE: VITAL SIGNS: T max 98.5, pulse 92, blood pressure 129/72, respirations 20, O2 sat 94% on nasal cannula at 1 liter. I's and O's show a positive balance of 386 with 1286 in, 900 out. He has had 1 bowel movement. Weight 70.9 kg. GENERAL: The patient appears to be in no distress. He is alert , fully cooperative, but continues to have hallucinations although he says they are not as bad today as on admission. His also notes that he seems to be a little better today. HEENT: Bilateral eyelids continue to show matting and erythema. NECK: Remains supple, non-tender with full range of motion. CHEST: Lungs are clear to auscultation bilaterally. HEART: Regular rate and rhythm. ABDOMEN: Soft, non-tender. Positive bowel sounds. EXTREMITIES: No clubbing, cyanosis or edema. There are 2 skin tears to both elbows. NEUROLOGIC: He is alert to himself and his . He does not recall where he is. He does have recall of previous events. He understands why he is in the hospital. He knows the year and his date of . His facial features remain symmetrical. Extraocular movements are within normal limits. There is no nystagmus noted. There is no notable motor deficits. LABORATORY: White count is down to 12.1, hemoglobin and hematocrit 11.7 and 35.5, platelet count 189,000. Differential today continues to show a left shift but less number of bands compared to admission. Chemistries show normal electrolytes now with potassium 4.9, BUN 19, creatinine 1.16, glucoses have been 76 to 91. Liver functions show to be within normal limits. MICROBIOLOGY: Culture of CSF is still pending. CSF culture showed no growth at 24 hours. Blood cultures remain negative at 24 hours. West Nile IgG and IgM antibodies are pending. RPR was nonreactive. RADIOLOGY: Chest x-ray single view per radiology interpretation showed no acute pleural parenchymal process is seen in the imaged gomez. ASSESSMENT: 1. Altered mental status with hyperactive delirium, unknown etiology with cerebrospinal fluid studies pending with the patient being currently on parenteral Acyclovir and Rocephin, remains afebrile. 2. Extensive paranasal sinus, maxillary sinus disease currently on Rocephin. 3. Leukocytosis showing improvement with the patient having a history of myelodysplastic syndrome with a chronic elevated white count. 4. Renal insufficiency likely prerenal azotemia showing improvement after IV therapy. 5. Type 2 diabetes mellitus on insulin therapy. 6. History of chronic lower back pain with multiple surgeries and on chronic pain medication. 7. History of diverticulosis. 8. History of polymyalgia rheumatica. 9. Bilateral acute conjunctivitis likely bacterial in origin showing improvement after starting on other drops. PLAN: The patient has been changed to admission status. Will continue with Acyclovir and Rocephin. Will change his Acyclovir dosage to 750 every 8 hours and continue this until we can get the CSF viral studies back. Will continue with otic drops for conjunctivitis. Again, reinforce safety to prevent future falls as well as try a low dose Haldol IM to assist with possibly decreasing the extensive hallucinations without providing significant sedation. I have encouraged the to spend as much time with him as possible to keep him oriented. Will also try some Melatonin tonight to assist with maybe reestablishing a normal sleep pattern as this may be exacerbating his delirium. Anticipate additional length of stay to be at least 2 to 3 more days until the patient either clinically shows improvement or other testing is completed. Until discharge, will continue to monitor the patient closely and treat appropriately. At time of discharge, the patient will need close followup with his primary care provider, Dr. Page. #[id number] [facility]
[2016-12-02] MEDS ORDERED: SODIUM CHL 0.9% 50ML MIN-BAG+ 50 ML IVPB ONE (19:11)
[2016-12-02] MEDS ORDERED: cefTRIAXone SODIUM 1 GM VIAL ONE (19:12)
[2016-12-02] MEDS: ENOXAPARIN SODIUM 40 MG/0.4 ML SYG SUBCU SCH (20:45)
[2016-12-03] MEDS: KCL 20 MEQ/NS 1,000 ML IVS PRN (05:23)
[2016-12-03] MEDS: INSULIN LISPRO 100 UNITS/ML PEN SUBCU SCH ×4 (07:00→21:35)
[2016-12-03] MEDS ORDERED: SODIUM CHLORIDE 0.9% 250ML 250 ML ONE (07:30)
[2016-12-03] MEDS ORDERED: ACYCLOVIR SODIUM INJECTION 500 MG VIAL ONE (07:31)
[2016-12-03] MEDS: SODIUM CHLORIDE 0.9% IVPB SCH (07:54)
[2016-12-03] MEDS: ACYCLOVIR SODIUM IVPB SCH (07:54)
[2016-12-03] MEDS: ASPIRIN EC 81 MG TAB PO SCH (08:35)
[2016-12-03] MEDS: DULoxetine HCL 30 MG CAP PO SCH ×2 (08:35→20:42)
[2016-12-03] MEDS: OPTHALMIC BOTH_EYES SCH ×4 (08:35→20:41)
[2016-12-03] MEDS: CLOPIDOGREL 75 MG TAB PO SCH (08:35)
[2016-12-03] MEDS: CIPROFLOXACIN 0.3% BOTH_EYES SCH ×4 (08:35→20:41)
[2016-12-03] MEDS ORDERED: THIAMINE HCL INJ 100 MG/ML VIAL ONE ×2 (09:32→14:45)
[2016-12-03] MEDS ORDERED: SODIUM CHLORIDE 0.9% 100ML 100 ML IVPB ONE ×2 (09:37→14:45)
[2016-12-03] MEDS: predniSONE 10 MG TAB PO SCH (09:40)
[2016-12-03] MEDS: THIAMINE HCL INJ 100 MG in SODIUM CHLORIDE 0.9% 100ML 100 ML IVPB SCH (09:42)
[2016-12-03] MEDS ORDERED: AMOXICILLIN & POT CLAVULANATE 500MG TAB PO ONE (10:28)
[2016-12-03] MEDS: AMOXICILLIN 500 MG CAP PO SCH ×3 (10:30→20:42)
--- NOTE | 2016-12-03 11:26 | PN ---
DATE: 12/03/16 SUBJECTIVE: This 76 year-old male is resting in the bed. He appears to be much more alert than yesterday morning. In the process technician yesterday, he was on the floor with fecal and urine incontinence and marked confusion state. He has not been very active and will need to increase his activity today with close observation and support to prevent falls. No specific injury otherwise evident from his time on the floor yesterday morning. His appetite is still very poor with him not eating much of his lunch tray today. His has been spending several of the nights up most of the night losing sleep and has been coming down with what appears to be a viral illness today, and she is going to be taking it easy today as she tries to catch up on some of her rest, and to try to feel better in an effort also to not share with the patient any of these particular symptoms. She will be hopefully coming in later today. OBJECTIVE: Afebrile, pulse 64, blood pressure 143/71, pulse oximetry 94% on 1 liter with ambulation studies to evaluate the requirements of oxygen later today. Generally the patient is fairly alert and responsive. He is oriented somewhat. A Mini Mental State Examination is performed and shows a score of 23 out of 30 points. This places him in a somewhat abnormal position with a score less than 24. He is only in a moderate risk of early onset dementia, the severity of which shows mild cognitive impairment. LUNGS: Clear. HEART: Tones have a grade 2/6 systolic murmur, otherwise regular. ABDOMEN: Soft. EXTREMITIES: Fairly good muscle tone is noted. The patient, according to nursing staff, is much more responsive and oriented today than yesterday. No further visual hallucinations are noted. The patient does remember the hallucinations that he had upon admission and reveals that he has been informed that they were not real. LABORATORY STUDIES: Pending. 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 Other lab studies are pending. ASSESSMENT: 1. Acute visual with auditory hallucinations probably indicative of an acute delirium state with marked disorientation. Possibility of early dementia must be considered. Strong family history thereof. At this time, there is no evidence of ethanol withdrawal. No evidence of history of psyche or paranoia in the past. No evidence of significant visual acuity diminishment but will have to be tested thyroid function. No evidence of a significant infection at this time with urine culture and spinal fluid cultures negative. Calcium electrolytes were within normal limits. No significant loss of sleep, but will endeavor to improve the sleep pattern at night with the melatonin. 2. Altered mental status showing some improvement, probably secondary to a significant delirium state possibly from early dementia presentation. 3. Extensive paranasal sinus maxillary disease. 4. 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 5. Renal insufficiency with prerenal azotemia presentation showing improvement with hydration supplementation. 6. Chronic diabetes mellitus type 2 on insulin therapy currently on sliding scale insulin and doing fairly well. 7. History of chronic lower back pain with multiple surgeries and on chronic pain medications currently stable. 8. History of diverticulosis. 9. History of polymyalgia rheumatica by history. 10. Bilateral acute conjunctivitis probable bacterial in origin showing improvement with Cipro eyedrops. 11. History of falls. PLAN: The patient will have increased activity with the walker with special attention to avoid falls. Ambulation study to evaluate for the need of oxygen. Completion of the Mini Mental State Examination reveals some mild to moderate impairment. Will try Melatonin to improve sleep. Give a trial of thiamine 2 doses today and 1 tomorrow morning. Physical Therapy evaluation in the morning to determine safety of ambulation. Await ambulation study today. Social Service to evaluate in the morning for possible Home Health placement. Also on discharge, consider eye clinic evaluation for visual acuity testing which could contribute to some visual hallucinations if abnormal. Also consider evaluation by neurology clinic after discharge. Observe diabetes closely. At this time, the patient is on no specific medication treatment for his delirium and is showing some improvement. Since there was no significant evidence of leukocyte inflammatory response in the cerebrospinal fluid, will stop the Acyclovir and the Rocephin at this time. Will continue with Amoxicillin for a possible sinusitis. #[id number] [facility]
[2016-12-03] MEDS ORDERED: THIAMINE HCL INJ 100 MG/ML VIAL IV ONE (12:04)
[2016-12-03] MEDS ORDERED: THIAMINE HCL INJ 100 MG in SODIUM CHLORIDE 0.9% 100ML 100 ML IVPB ONE (17:00)
[2016-12-03] MEDS: ENOXAPARIN SODIUM 40 MG/0.4 ML SYG SUBCU SCH (20:41)
[2016-12-03] MEDS ORDERED: ATENOLOL 25 MG TAB PO SCH (21:00)
[2016-12-03] MEDS ORDERED: ATORVASTATIN 10 MG TAB PO SCH (21:00)
[2016-12-03] MEDS ORDERED: MELATONIN 3 MG TAB PO SCH (21:00)
[2016-12-04] MEDS: KCL 20 MEQ/NS 1,000 ML IVS PRN (02:43)
[2016-12-04] MEDS: INSULIN LISPRO 100 UNITS/ML PEN SUBCU SCH ×2 (07:14→12:11)
[2016-12-04] MEDS: DULoxetine HCL 30 MG CAP PO SCH (08:53)
[2016-12-04] MEDS: ASPIRIN EC 81 MG TAB PO SCH (08:54)
[2016-12-04] MEDS: AMOXICILLIN 500 MG CAP PO SCH (08:54)
[2016-12-04] MEDS: OPTHALMIC BOTH_EYES SCH (08:56)
[2016-12-04] MEDS: CIPROFLOXACIN 0.3% BOTH_EYES SCH (08:56)
[2016-12-04] MEDS ORDERED: THIAMINE HCL INJ 100 MG/ML VIAL ONE ×2 (11:56→12:09)
[2016-12-04] MEDS ORDERED: SODIUM CHLORIDE 0.9% 100ML 100 ML IVPB ONE ×2 (11:56→12:09)
--- NOTE | 2016-12-04 11:58 | DS ---
DISCHARGE DIAGNOSIS: 1. Acute visual with auditory hallucinations of undetermined exam is limited to, possibly related to an acute delirium state with marked disorientation, possibly early dementia to be considered with a strong family history thereof, possible medication related with the patient now being on a reduced dose of Cymbalta. No evidence of acute [employer] infection at this time. Possible early movement disorder such as Parkinsonism with the possibility of an early clinical presentation of Lewy Body dementia. 2. Altered mental status, showing steady improvement during hospital stay. 3. Extensive paranasal sinus maxillary disease with followup suggested. 4. 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 5. Renal insufficiency with prerenal azotemia, showing improvement with parenteral supplementation of fluid.n. 6. Chronic diabetes mellitus type 2, on insulin therapy, initially requiring only sliding scale and re-introduction at a reduced insulin dosage at discharge with improved caloric intake. 7. History of chronic lower back pain with multiple surgeries, fusions, etc., on chronic pain medications, currently stable. 8. History of diverticulosis. 9. History of polymyalgia rheumatica. 10. Bilateral acute conjunctivitis, probable bacterial in origin, showing improvement with Cipro eyedrops. 11. History of falls. 12. History of staggered gait with alteration in penmanship, possibly as a symptom of an early movement disorder such as Parkinsonism. HISTORY OF PRESENT ILLNESS: This 76-year-old, white male was admitted to the hospital because of an acute onset of altered level of consciousness with behavioral changes as well with significant visual hallucinations of great concern to the . The patient was even getting upset and was even somewhat physical with the when she did not agree with what he was seeing. He was admitted to the hospital for specific opportunity to try to rule out an underlying treatment disorder. He had a cerebral spinal fluid examination initially which showed very low white blood cell count, suggesting minimal inflammatory changes, but was started on antiviral as well as antibiotic coverage with cultures eventually being negative on the bacterial side and will take at least another month to 6 weeks before the viral studies are available. He has been seen by Dr. uYan for a myelodysplastic syndrome int he past as well as polymyalgia rheumatica for which he is on chronic low dose prednisone. His condition was concerning to the point that he required admission to the hospital for stabilization in an effort to again rule out significant underlying pathology contributing to a significant decline in his abilities to function. LABORATORY: White count 12,800 at discharge. Hemoglobin 11.9 with 79% neutrophils. INR 0.99. Hemoglobin A1c 7.6 and was glucose levels were quite normal during the initial part of the hospital stay and started going up again when the prednisone was re-introduced. C-reactive protein markedly elevated at 14.5 which may be related to the polymyalgia rheumatica as well as the myelodysplastic process that the patient is undergoing and also the test had been done about 2 days after stopping his prednisone initially at the time of admission to the hospital. Urinalysis showed some hematuria and a little glycosuria. CSF evaluation showed sugar 104, protein 23, WBC only 2, 100% lymphocytes and RBCs 346, probably related to repeat attempts at LP. Serology is pending for West Nile virus with RPR being nonreactive. Cultures showed CSF culture negative at 72 hours. Blood cultures also negative. Spinal fluid study showed no WBCs or bacteria observed on gram stain. Viral cultures pending. Brain MRI showed multifocal areas of patchy increased signal intensity present in the subcortical and periventricular deep white matter suggesting a small vessel ischemic change present. Paranasal sinus disease noted. No acute infarctions evident. Chest x-ray was performed and showed no acute process present. HOSPITAL COURSE: The patient showed spells of exacerbation and remission of his confusion state. He eventually showed steady improvement to the point that he was able to be discharged and was ready for continued outpatient followup. Mini mental state examination did reveal mild to moderate cognitive impairment. This was done on the day before discharge. His sleeping pattern appeared to show some improvement. When physical therapy evaluated him, they had to actively request that he slow down his walking. His has noted shuffling of his feet while walking recently and he admits that his handwriting has significantly deteriorated in recent months. His acyclovir and Rocephin initially started because of the suspicion of an [employer] infection were stopped and he was observed and no significant febrile illness was noted. PLAN: Discharge home with close followup with Dr. Page in the clinic as soon as possible. Scheduled to see Dr. Parra in the neurologic clinic in [place] as soon as possible because of the visual hallucinations. Consider possible movement disorder such as Parkinson's with early Lewy Body dementia possibly as a contributor. The family is also to schedule him to be seen in their eye clinic here in [place] for a complete eye exam. We will decrease the Cymbalta followup 60 mg b.i.d. to 30 mg b.i.d. Decrease Lantus insulin to 20 units at bedtime and adjust with Dr. Page' input to assist with controlling diabetes. Special attention to avoid falls. Continue with the eyedrops given to the patient at the time of his discharge. Return if not improving. Instruction also given that if the patient senses that he sees something that his cannot see, to not get angry and upset at her and to realize that she may be an important factor to allow him to improve his medical receptionist of his environment with special attention to avoid injuries. Close followup necessary. #[id number] [facility]
[2016-12-04] MEDS: THIAMINE HCL INJ 100 MG in SODIUM CHLORIDE 0.9% 100ML 100 ML IVPB SCH (12:08)
[2016-12-04] MEDS: CLOPIDOGREL 75 MG TAB PO SCH (12:10)
[2016-12-04] MEDS: predniSONE 10 MG TAB PO SCH (12:10)
[2016-12-04] MEDS ORDERED: OPTHALMIC BOTH_EYES SCH (13:00)
[2016-12-04] MEDS ORDERED: CIPROFLOXACIN 0.3% BOTH_EYES SCH (13:00)
[2016-12-04 13:25] VITALS: BP 132/79; TEMP 96.7; O2SAT 97
== END 2016-12-04 12:05 | disposition home or self-care (01) | DRG 683 ==
LOC: ER 08:47 → MS 14:47 → OBSVTOIN 12-02 14:40
PROVIDERS: ADMIT Nurse Practitioner Family; ATTEND Emergency Medicine
PROC: B030YZZ Magnetic Resonance Imaging (MRI) of Brain using Other Contrast (ICD-10-PCS; principal; 2016-12-01)
PROC: 009U3ZX Drainage of Spinal Canal, Percutaneous Approach, Diagnostic (ICD-10-PCS; 2016-12-01)
DX: N17.9 Acute kidney failure, unspecified (principal); F05 Delirium due to known physiological condition; F02.81 Dementia in other diseases classified elsewhere, unspecified severity, with behavioral disturbance; R44.1 Visual hallucinations; M35.3 Polymyalgia rheumatica; E86.0 Dehydration; J01.00 Acute maxillary sinusitis, unspecified; D46.9 Myelodysplastic syndrome, unspecified; G40.909 Epilepsy, unspecified, not intractable, without status epilepticus; E11.42 Type 2 diabetes mellitus with diabetic polyneuropathy; E11.65 Type 2 diabetes mellitus with hyperglycemia; G31.83 Neurocognitive disorder with Lewy bodies; T43.215A Adverse effect of selective serotonin and norepinephrine reuptake inhibitors, initial encounter; Y92.009 Unspecified place in unspecified non-institutional (private) residence as the place of occurrence of the external cause; G89.29 Other chronic pain; M54.5 Low back pain; H10.33 Unspecified acute conjunctivitis, bilateral; R29.6 Repeated falls; G31.84 Mild cognitive impairment of uncertain or unknown etiology; I12.9 Hypertensive chronic kidney disease with stage 1 through stage 4 chronic kidney disease, or unspecified chronic kidney disease; N18.9 Chronic kidney disease, unspecified; E11.22 Type 2 diabetes mellitus with diabetic chronic kidney disease; R32 Unspecified urinary incontinence; R15.9 Full incontinence of feces; S40.812A Abrasion of left upper arm, initial encounter; S40.811A Abrasion of right upper arm, initial encounter; W06.XXXA Fall from bed, initial encounter; I25.2 Old myocardial infarction; F17.210 Nicotine dependence, cigarettes, uncomplicated; Y93.9 Activity, unspecified; Y92.230 Patient room in hospital as the place of occurrence of the external cause; Y99.8 Other external cause status; Z88.8 Allergy status to other drugs, medicaments and biological substances; Z82.0 Family history of epilepsy and other diseases of the nervous system; Z79.52 Long term (current) use of systemic steroids; Z95.5 Presence of coronary angioplasty implant and graft; Z79.899 Other long term (current) drug therapy; Z79.4 Long term (current) use of insulin; Z79.891 Long term (current) use of opiate analgesic; Z98.1 Arthrodesis status

== ENCOUNTER → 2017-02-27 | Outpatient (CLI) | payer MEDICARE | END | disposition home or self-care (01) | LOC: GMAL 11:00 | PROVIDERS: ATTEND Family Medicine | DX: D51.3 Other dietary vitamin B12 deficiency anemia (principal); R53.82 Chronic fatigue, unspecified; E55.9 Vitamin D deficiency, unspecified; Z79.899 Other long term (current) drug therapy ==

== ENCOUNTER 2017-05-13 22:17 | Inpatient (IN) | payer MEDICARE ==
[2017-05-13] MEDS ORDERED: SODIUM CHLORIDE 0.9% 1000ML 1,000 ML ONE (22:22)
--- NOTE | 2017-05-13 23:13 | CT ---
PROCEDURE: Head CLINICAL HISTORY: 76 years Male head contusion COMPARISON: None. TECHNIQUE: Contiguous axial CT images obtained through the brain without IV contrast. This exam was performed according to our department optimization program which includes automated exposure control, adjustment of the mA and/or kv according to patient size and/or use of iterative reconstruction technique. FINDINGS: The ventricles and sulci are prominent consistent with atrophic changes. Microvascular ischemic changes. No mass lesions. No acute hemorrhage. Atherosclerotic calcifications. Postsurgical changes along the medial laguerre of the maxillary sinuses. No fluid or significant mucosal thickening within the visualized paranasal sinuses. No depressed calvarial fractures. IMPRESSION: No acute intracranial abnormality is identified. Atrophy and microvascular ischemic changes. Electronically signed by: Isai Georges MD 05/13/2017 11:12 PM CDT
[2017-05-13] MEDS ORDERED: SODIUM CHLORIDE 0.9% 500ML 500 ML IVS ONE (23:22)
--- NOTE | 2017-05-13 23:22 | CT ---
EXAM DESCRIPTION: Lower Extremity CLINICAL HISTORY: 76 years Male fall /pain right hip COMPARISON: None. TECHNIQUE: Contiguous axial CT images obtained through the without IV contrast. Reformatted images obtained. This exam was performed according to our department optimization program which includes automated exposure control, adjustment of the mA and/or kv according to patient size and/or use of iterative reconstruction technique. FINDINGS: There is a mildly comminuted and impacted subcapital fracture of the right proximal femur with varus deformity. There appears to be some sclerosis along the fracture margins suggesting that this represents a subacute fracture. No significant bridging callus formation is noted. There is small amount of surrounding soft tissue stranding. No significant hip effusion. Vascular calcification in the soft tissues. IMPRESSION: There is a mildly comminuted and impacted subcapital fracture of the right hip with sclerosis of the margins of the fracture concerning for subacute nature rather than acute. Recommend clinical correlation There is varus deformity at the fracture Electronically signed by: Vidhya Georges 05/13/2017 11:20 PM CDT
--- NOTE | 2017-05-13 23:35 | ED.PDOC ---
History of Present Illness - General Chief Complaint: Lower Extremity Injury Stated Complaint: s/p fall c/o right thigh pain Time Seen by Provider: 05/13/17 22:23 Source: patient, EMS notes reviewed, family Exam Limitations: no limitations - History of Present Illness Initial Comments: Alvaro Waters 76 y/o male stated that he slipped 2x on his bathroom landing on his head as he was about to go shower and on getting out of the shower.Denies LOC/dizziness,syncopal episode,neck pains as he was about to go to jehovah's witness this morning.He went back to bed and stayed in bed all day but as he was about to go back to the bathroom he was noted to roll down his bed unable to get up and kneeled while urinating then tried to get up from kneeling position could not stand up with pain on sharp pain on his right thigh then laid down on the floor until ems arrival. 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 Home Medications: Ambulatory Orders Aspirin [Aspirin Adult Low Dose] 81 mg PO DAILY 12/01/16 Atenolol [Tenormin] 25 mg PO SUWE 12/01/16 Atorvastatin Calcium [Lipitor] 10 mg PO SUWE 12/01/16 Clopidogrel Bisulfate [Plavix] 75 mg PO DAILY 12/01/16 HYDROcodone 10MG/APAP 325MG [[place] 10/325] 1 tab PO Q4HR PRN 12/01/16 Insulin Regular (Human) [Novolin R] 6 unit SUBCU TIDFD 12/01/16 Duloxetine HCl [Cymbalta] 30 mg PO BID #0 12/04/16 Insulin Glargine [Lantus Solostar] 20 unit SC BEDTIME #0 12/04/16 Melatonin 6 mg PO BEDTIME PRN #15 tab 12/04/16 Prednisone 5 mg PO BID #0 12/04/16 Augmentin Tab 05/13/17 Review of Systems - Review of Systems Constitutional: States: no symptoms reported, other - frailty EENTM: States: no symptoms reported Respiratory: States: no symptoms reported Cardiology: States: no symptoms reported Gastrointestinal/Abdominal: States: no symptoms reported Genitourinary: States: no symptoms reported Musculoskeletal: States: joint pain - chronic Skin: States: no symptoms reported Neurological: States: no symptoms reported Past Medical History (General) - Patient Medical History Hx Seizures: No Hx Stroke: Yes - X1 in 1960 Hx Dementia: No Hx Asthma: No Hx of COPD: No Hx Cardiac Disorders: Yes - CAD Hx Congestive Heart Failure: No Hx Pacemaker: No Hx Hypertension: No Hx Thyroid Disease: No Hx Diabetes: Yes Hx Gastroesophageal Reflux: No Hx Renal Disease: No Hx Cancer: No Hx of HIV: No Hx Hepatitis C: No Hx MRSA: No Hx Other PMH: Yes - PAD,polymyalgia rheumatica Surgical History: tonsillectomy, other - c-spine,lumbar,knee,cardiac stent,pad stent - Vaccination History Hx Tetanus, Diphtheria Vaccination: Yes Hx Influenza Vaccination: Yes Hx Pneumococcal Vaccination: Yes - Social History Hx Tobacco Use: Yes Hx Chewing Tobacco Use: No Hx Alcohol Use: No Hx Substance Use: No Hx Substance Use Treatment: No Hx Depression: No Feels Threatened In Home Enviroment: No Feels Threatened In a Relationship: No Hx Physical Abuse: No Hx Emotional Abuse: No Hx Suspected Abuse: No - Activities of Daily Living Patient Lives Alone: No - Grooming Ability: Independent Eating (Feeding) Ability: Independent Toileting Ability: Independent Physical Exam - Physical Exam General Appearance: Alert, No apparent distress Head Injury: ecchymosis - right periocular area Eye Exam: bilateral normal ENT Exam: hearing grossly normal, no evidence of ENT injury, no dental injury Peripheral Pulses: radial,right: 1+, radial,left: 1+ Cardiovascular/Respiratory: regular rate, rhythm, no M/R/G, normal peripheral pulses, normal breath sounds, no respiratory distress Gastrointestinal/Abdominal: non tender, soft, no organomegaly, no pulsatile mass , other - no peritoneal signs Back Exam: no vertebral tenderness Extremity Exam: pain with movement - right hip/thigh Neurologic: no motor/sensory deficits, alert, oriented x 3 Skin Exam: normal color, warm/dry - Tobias Coma Score Best Eye Response (Raymundo): (4) open spontaneously Best Verbal Response (Raymundo): (5) oriented Best Motor Response (Raymundo): (6) obeys commands Raymundo Total: 15 Progress - Progress Progress: 05/13/17 23:41 Vital Signs - 8 hr 05/13/17 05/13/17 22:17 22:25 Temperature 100.7 F H Pulse Rate [ 96 H monitor] Respiratory 18 18 Rate Blood Pressure 142/70 [Right Arm] O2 Sat by Pulse 96 Oximetry - Results/Orders Results/Orders: Laboratory Tests 05/13/17 05/13/17 05/13/17 21:46 21:46 21:46 WBC 16.8 H RBC 4.93 Hgb 14.5 Hct 44.5 MCV 90.1 MCH 29.4 MCHC 32.7 L RDW 16.7 H Plt Count 213 MPV 8.7 Absolute Neuts (auto) 13.70 H Absolute Lymphs (auto) 2.00 Absolute Monos (auto) 0.90 H Absolute Eos (auto) 0.10 Absolute Basos (auto) 0.10 Neutrophils % 81.8 H Lymphocytes % 12.1 L Monocytes % 5.2 Eosinophils % 0.5 L Basophils % 0.4 Sodium 140 Potassium 5.1 H Chloride 105 Carbon Dioxide 22 Anion Gap 18.1 H BUN 24 H Creatinine 1.62 H BUN/Creatinine Ratio 14.8 Random Glucose 177 H Serum Osmolality 287.8 Lactic Acid Calcium 8.9 Total Bilirubin 0.4 AST 29 ALT 28 Alkaline Phosphatase 92 Serum Total Protein 6.5 Albumin 3.0 L Globulin 3.5 Albumin/Globulin Ratio 0.9 L Ethyl Alcohol < 5.40 05/13/17 23:30 WBC RBC Hgb Hct MCV MCH MCHC RDW Plt Count MPV Absolute Neuts (auto) Absolute Lymphs (auto) Absolute Monos (auto) Absolute Eos (auto) Absolute Basos (auto) Neutrophils % Lymphocytes % Monocytes % Eosinophils % Basophils % Sodium Potassium Chloride Carbon Dioxide Anion Gap BUN Creatinine BUN/Creatinine Ratio Random Glucose Serum Osmolality Lactic Acid 2.0 Calcium Total Bilirubin AST ALT Alkaline Phosphatase Serum Total Protein Albumin Globulin Albumin/Globulin Ratio Ethyl Alcohol - EKG/XRAY/CT EKG: Sinus, no ST T wave changes Comments: heart rate 92 CT: mildly impacted subcapital subacute fracture right hip with sclerosis CT Ordered: Yes - head-no acute changes Departure - Departure Clinical Impression: Falls frequently, Lower extremity pain, right Subcapital fracture of right hip Qualifiers: Encounter type: initial encounter Fracture type: closed Qualified Code(s): S72.011A - Unspecified intracapsular fracture of right femur, initial encounter for closed fracture Time of Disposition: 00:05 - D/W SHANDRA Valdez/Hospitalist Disposition: Admit Patient Condition: Good Departure Forms: Patient Portal Self Enrollment Referrals: Regis Page III, MD [Primary Care Provider] - 1-2 Weeks Home Medications: Ambulatory Orders Aspirin [Aspirin Adult Low Dose] 81 mg PO DAILY 12/01/16 Atenolol [Tenormin] 25 mg PO SUWE 12/01/16 Atorvastatin Calcium [Lipitor] 10 mg PO SUWE 12/01/16 Clopidogrel Bisulfate [Plavix] 75 mg PO DAILY 12/01/16 HYDROcodone 10MG/APAP 325MG [[place] 10325] 1 tab PO Q4HR PRN 12/01/16 Insulin Regular (Human) [Novolin R] 6 unit SUBCU TIDFD 12/01/16 Duloxetine HCl [Cymbalta] 30 mg PO BID #0 12/04/16 Insulin Glargine [Lantus Solostar] 20 unit SC BEDTIME #0 12/04/16 Melatonin 6 mg PO BEDTIME PRN #15 tab 12/04/16 Prednisone 5 mg PO BID #0 12/04/16 Augmentin Tab 05/13/17 Decision To Admit - Decistion To Admit Decision to Admit Reason: Admit from ER Decision to Admit Date: 05/14/17 Decision to Admit Time: 00:06
--- NOTE | 2017-05-14 00:28 | HP ---
SUPERVISING PHYSICIAN: Nathanael Zaidi MD CHIEF COMPLAINT: Right extremity pain. HISTORY OF PRESENT ILLNESS: This is a 76-year-old male patient who was taking a shower on Sunday morning to get ready to go to spiritism. He slipped and fell in the shower, but was able to get up and complete his shower. As he stepped out of the shower, he slipped and fell again, but was able to get back into his bedroom. He decided to go to bed and he was in bed for several hours. Later that afternoon, his had a difficult time getting him out of bed. In fact, he had to scoot on chairs to get into the bed. Later that evening, she actually helped him to urinate and as he got up on the side of the bed, he slid down onto the floor. She could not get him up, so EMS was called and he was brought to the hospital. In the hospital, Emergency Room physician did do workup and he had a lower extremity CT scan per radiologic interpretation showed a mildly comminuted and impacted subcapital fracture of the right hip with sclerosis of the margins of the fracture concerning for subacute nature rather than acute. He also hit the right side of his face and his head CT per radiologic interpretation showed no acute intracranial abnormality with atrophy and microvascular ischemic changes. I was called for admission to the hospital. PAST MEDICAL HISTORY: 1. Acute renal insufficiency with a baseline creatinine of about 1.45. 2. Coronary artery disease. 3. Diabetes mellitus, type 2. 4. Myocardial infarction in 2000 with 2 to 3 stent placements. 5. Renal stones in 1999. 6. Remote history of seizure disorder. He only had one grand mal seizure in the 1960s, but has had no seizure since and is not on any medications. 7. Diabetic retinopathy. 8. Polymyalgia rheumatica diagnosed in 2003. 9. Myelodysplastic syndrome. 10. Pancytopenia due to medications. He is followed by Dr. Yuan at [facility]. 11. Chronic leukocytosis since 2003. PAST SURGICAL HISTORY: 1. Tonsillectomy. 2. Vasectomy times 2. 3. Cervical fusion with hip allograft. 4. Carpal tunnel release. 5. Rib removal in 1980 and in 1984. 6. Left knee surgery times 3. 7. Cervical fusion with cadaver bone graft in 1994. 8. Coronary artery stent placement per Dr. Mina times 2 to 3. 9. T5-6 vertebrectomy. 10. Abdominal aortogram with runoff with normal renals and he did have a stent placement. CURRENT MEDICATIONS: Per the EMR and awaiting verification. ALLERGIES: 1. METHOTREXATE. 2. IRON PILLS. FAMILY HISTORY: Noncontributory. SOCIAL HISTORY: He is retired. He is . He lives at [facility]. He has two children. He smokes one pack of cigarettes per day and has for 50 years. He drinks ETOH very infrequently. He denies any illicit drug use. REVIEW OF SYSTEMS: Negative at this point other than history of present illness and he does have some anorexia right now as he does not feel like eating. PHYSICAL EXAMINATION: VITAL SIGNS: Temperature 97.4. Heart rate 88. Blood pressure 114/62. Respiratory rate 16. O2 saturation 96% on 2 liters nasal cannula. GENERAL: This is a 76-year-old male patient who is lying in his hospital bed. He is in no acute distress. HEENT: Normocephalic. He does have some bruising to the right side of his face around the lateral right eye area. He does have a bruise under his right eye. Pupils are equal and reactive. Oropharynx is clear. NECK: Supple without mass. RESPIRATORY: Essentially clear to auscultation bilaterally. CHEST: There is equal rise and fall of the chest with inspiration and expiration. CARDIOVASCULAR: Regular rate and rhythm. ABDOMEN: Soft, nondistended, nontender. Bowel sounds are positive. EXTREMITIES: Bilateral pedal pulses are palpable at +2. He does have some tenderness along the lateral right hip area. NEUROLOGIC: Awake and alert. He has a difficult time answering some questions as far as his health history is concerned, but he is oriented times three. LABORATORY: Films are as per the history of present illness. Labs show sodium 140, potassium 5.1, chloride 105, carbon dioxide 22, BUN 24, creatinine 1.62, glucose 177, serum osmolality 2.87.8, albumin 3, lactic acid 2, magnesium 2. Urinalysis is basically within normal limits. Ethyl alcohol last night in the Emergency Room was less than 5.4. Hip x-ray this morning per radiologic interpretation showed an acute angulated right hip fracture. All other labs and films have been reviewed via the EMR. ASSESSMENT: 1. Right hip fracture. 2. Diabetes mellitus, type 2. 3. Renal insufficiency. 4. Myelodysplastic syndrome. 5. Polymyalgia rheumatica. 6. History of myocardial infarction. 7. Chronic leukocytosis since 2003. PLAN: We will admit the patient to the hospital. I have consulted Dr. Avila for surgical intervention. He will be placed on sliding scale insulin and an 1800 calorie ADA diet. He will be NPO after midnight and we will start Dr. Avila's preoperative orders. I will restart his prednisone as well as a low dose of his atenolol. We will readdress his home medications after surgery tomorrow. I have ordered a chest x-ray for today as well as bronchial hygiene with breathing treatments. At this point, he has refused nicotine patch, but I will order one if he needs it. Otherwise, we will monitor the patient closely and follow as needed. Dr. Zaidi is the collaborating physician and available for consultation. #[id number] [facility]
[2017-05-14] MEDS ORDERED: fentaNYL CITRATE INJ 50 MCG/ML AMP IV ONE (00:30)
[2017-05-14] MEDS ORDERED: ONDANSETRON INJ 4 MG/2 ML VIAL IV PRN (01:33)
[2017-05-14] MEDS ORDERED: SODIUM CHLORIDE 0.9% (FLUSH) 10 ML SYG IV PRN (01:33)
[2017-05-14] MEDS ORDERED: ACETAMINOPHEN 325 MG TAB PO PRN (01:33)
[2017-05-14] MEDS ORDERED: ALBUTEROL SULFATE 2.5 MG/3 ML VIAL NEB PRN (01:33)
[2017-05-14] MEDS ORDERED: DEXTROSE 50% 25 GM/50 ML SYG IV PRN (01:51)
[2017-05-14] MEDS ORDERED: GLUCAGON INJ 1 MG VIAL SUBCU PRN (01:51)
[2017-05-14] MEDS: PANTOPRAZOLE SODIUM IV 40 MG VIAL IV SCH (02:44)
[2017-05-14] MEDS: IV SET AND CAP CHANGE INJ INJ SCH (02:44)
[2017-05-14] MEDS: fentaNYL CITRATE INJ 50 MCG/ML AMP IV PRN ×5 (02:56→15:48)
[2017-05-14] MEDS: INSULIN LISPRO 100 UNITS/ML PEN SUBCU SCH ×4 (07:25→21:12)
[2017-05-14] MEDS: ALBUTEROL SULFATE 2.5 MG/3 ML VIAL NEB SCH ×4 (08:00→20:33)
[2017-05-14] MEDS ORDERED: SODIUM CHLORIDE 0.9% (FLUSH) 10 ML SYG IV SCH (09:00)
[2017-05-14] MEDS: HYDROcodone 10MG/APAP 325MG 1 EA TAB PO PRN ×3 (10:45→21:09)
--- NOTE | 2017-05-14 11:29 | RAD ---
EXAM DESCRIPTION: Hip,Right 2 Views CLINICAL HISTORY: 76 years, Male, right hip fx COMPARISON: None TECHNIQUE: AP and frog leg lateral views of the hip FINDINGS: Acute transverse fracture at the base of the femoral neck significant varus angulation at the fracture site. No displacement. Moderate arthritic changes of the hip joint. Diffuse decreased bone density consistent with osteopenia/osteoporosis. IMPRESSION: 1. Acute angulated right hip fracture Electronically signed by: Sadi Simon MD 05/14/2017 11:28 AM CDT
--- NOTE | 2017-05-14 12:19 | RAD ---
EXAM DESCRIPTION: Chest,1 View CLINICAL HISTORY: 76 years Male, preop COMPARISON: 12/02/2016 IMPRESSION: The heart remains borderline enlarged, without failure. The thoracic aorta is tortuous. Coarsened perihilar interstitial markings are again demonstrated, and are not significantly changed. These likely reflect interstitial scarring/fibrosis. No new confluent airspace consolidation, pleural effusion, or pneumothorax. Stable radiopaque device projecting over the midthoracic spine. No acute osseous abnormality. Electronically signed by: Brayan Lee MD 05/14/2017 12:17 PM CDT
[2017-05-14] MEDS ORDERED: PANTOPRAZOLE SODIUM IV 40 MG VIAL IV SCH (13:00)
[2017-05-14] MEDS: predniSONE 5 MG TAB PO SCH ×2 (13:03→21:09)
[2017-05-14] MEDS ORDERED: VANCOMYCIN HCL INJ 1,000 MG in SODIUM CHLORIDE 0.9% 250ML 250 ML IVPB ONE (13:56)
[2017-05-14] MEDS ORDERED: ceFAZolin SODIUM 1 GM in SODIUM CHL 0.9% 50ML MIN-BAG+ 50 ML IVPB ONE (13:56)
[2017-05-14] MEDS ORDERED: SODIUM CHL 0.9% 50ML MIN-BAG+ 50 ML IVPB ONE (14:06)
[2017-05-14] MEDS ORDERED: ceFAZolin SODIUM 1 GM VIAL ONE (14:08)
[2017-05-14] MEDS: SODIUM CHLORIDE 0.45% 1000ML 1,000 ML IVS PRN (14:15)
[2017-05-14] MEDS ORDERED: SODIUM CHLORIDE 0.9% 250ML 250 ML ONE (15:39)
[2017-05-14] MEDS ORDERED: VANCOMYCIN HCL INJ 1,000 MG VIAL IVPB ONE (15:40)
[2017-05-14] MEDS ORDERED: DULoxetine HCL 30 MG CAP PO ONE (20:22)
[2017-05-14] MEDS: NON-FORMULARY MEDICATION 1 EA MIS (Duloxetine Hcl [Cymbalta] 60 MG) PO SCH (21:09)
[2017-05-15] MEDS: fentaNYL CITRATE INJ 50 MCG/ML AMP IV PRN ×5 (00:07→09:17)
[2017-05-15] MEDS: PANTOPRAZOLE SODIUM IV 40 MG VIAL IV SCH (02:30)
[2017-05-15] MEDS: INSULIN LISPRO 100 UNITS/ML PEN SUBCU SCH ×4 (07:39→21:58)
[2017-05-15] MEDS: ALBUTEROL SULFATE 2.5 MG/3 ML VIAL NEB SCH ×4 (08:35→20:42)
[2017-05-15] MEDS ORDERED: VANCOMYCIN HCL INJ 1,000 MG in SODIUM CHLORIDE 0.9% 250ML 250 ML IVPB ONE (08:35)
[2017-05-15] MEDS ORDERED: CEFAZOLIN SODIUM 2 GRAMS IV 2 GM in PREMIX BAG 1 BAG IVPB SCH ×2 (08:45→19:00)
[2017-05-15] MEDS ORDERED: VANCOMYCIN HCL INJ 1,000 MG VIAL IVPB ONE ×3 (09:04→23:45)
[2017-05-15] MEDS ORDERED: SODIUM CHLORIDE 0.9% 250ML 250 ML ONE ×2 (09:04→23:45)
[2017-05-15] MEDS ORDERED: ceFAZolin SODIUM 1 GM VIAL ONE (09:07)
[2017-05-15] MEDS ORDERED: BUPIVACAINE 0.25% INJ 30 ML VIAL INJ ONE (09:07)
[2017-05-15] MEDS: HYDROcodone 10MG/APAP 325MG 1 EA TAB PO PRN (09:09)
[2017-05-15] MEDS: ATENOLOL 25 MG TAB PO SCH (10:00)
[2017-05-15] MEDS: predniSONE 5 MG TAB PO SCH ×2 (10:00→22:24)
[2017-05-15] MEDS ORDERED: ACETAMINOPHEN IV 1000MG 100 ML ONE (10:25)
[2017-05-15] MEDS ORDERED: ROCURONIUM BROMIDE 10 MG/ML VIAL ONE ×2 (10:25→10:53)
[2017-05-15] MEDS ORDERED: MIDAZOLAM INJ 5 MG/5 ML VIAL ONE (10:25)
[2017-05-15] MEDS ORDERED: fentaNYL CITRATE INJ 50 MCG/ML AMP ONE (10:25)
[2017-05-15] MEDS ORDERED: TRANEXAMIC ACID 1,000 MG/10 ML VIAL IV ONE (10:30)
[2017-05-15] MEDS ORDERED: CEFAZOLIN SODIUM 2 GRAMS IV 50 ML IVPB ONE ×2 (10:33→15:28)
[2017-05-15] MEDS: ENOXAPARIN SODIUM 30 MG/0.3 ML SYG SUBCU SCH (10:36)
[2017-05-15] MEDS ORDERED: ELECTROLYTE-A 1,000 ML IVS ONE ×2 (10:44→12:34)
[2017-05-15] MEDS ORDERED: SODIUM CHLORIDE 0.9% 100ML 100 ML IVPB ONE (10:50)
[2017-05-15] MEDS ORDERED: TRANEXAMIC ACID 1,000 MG/10 ML VIAL IVPB ONE (11:20)
[2017-05-15] MEDS ORDERED: raNITIdine HCL INJ 25 MG/ML VIAL IV ONE (12:00)
[2017-05-15] MEDS ORDERED: HYDROCORTISONE SOD SUCC INJ 100 MG/2 ML VIAL IV ONE (12:00)
[2017-05-15] MEDS ORDERED: ePHEDrine SULF 50 MG/ML IV ONE (12:00)
[2017-05-15] MEDS ORDERED: LIDOCAINE 1% 10 ML VIAL INJ ONE (12:00)
[2017-05-15] MEDS ORDERED: METOCLOPRAMIDE HCL INJ 10 MG/2 ML VIAL IV ONE (12:00)
[2017-05-15] MEDS ORDERED: PROPOFOL 200 MG/20 ML VIAL IV ONE (12:00)
[2017-05-15] MEDS ORDERED: SUGAMMADEX SODIUM 200 MG/2 ML VIAL IV ONE (13:05)
--- NOTE | 2017-05-15 14:53 | RAD ---
EXAM DESCRIPTION: Hip,Right 2 Views CLINICAL HISTORY: post op COMPARISON: May 14, 2016 TECHNIQUE: AP/frog leg lateral FINDINGS: Bipolar prosthesis has been placed and articulates with the [place]hue[place] acetabulum with satisfactory alignment. Femoral head and neck have been surgically resected. IMPRESSION: Satisfactory right hip replacement. Electronically signed by: Nathanael Young MD 05/15/2017 2:51 PM CDT
--- NOTE | 2017-05-15 14:54 | RAD ---
EXAM DESCRIPTION: Pelvis,2 or More Views CLINICAL HISTORY: 76 years Male, post-op COMPARISON: None. FINDINGS: Two views of the pelvis demonstrate a right hip bipolar prosthesis articulating with the [place] acetabulum. The bones are osteopenic. Mild degenerative changes of the opposite left hip are noted. Pelvic phleboliths are evident. IMPRESSION: Satisfactory right hip replacement. Electronically signed by: Nathanael Young MD 05/15/2017 2:52 PM CDT
[2017-05-15] MEDS: SODIUM CHLORIDE 0.45% 1000ML 1,000 ML IVS PRN (15:40)
[2017-05-15] MEDS: CEFAZOLIN SODIUM 2 GRAMS IV 2 GM in PREMIX BAG 1 BAG IVPB SCH (16:00)
[2017-05-15] MEDS ORDERED: NON-FORMULARY MEDICATION 1 EA MIS (Insulin Glargine [Lantus Solostar] 20 UNIT) SC SCH (21:00)
[2017-05-15] MEDS ORDERED: INSULIN DETEMIR 100 UNITS/ML PEN SUBCU ONE (22:02)
[2017-05-15] MEDS: INSULIN DETEMIR 100 UNITS/ML PEN SUBCU SCH (22:04)
[2017-05-15] MEDS: NON-FORMULARY MEDICATION 1 EA MIS (Duloxetine Hcl [Cymbalta] 60 MG) PO SCH (22:24)
[2017-05-15] MEDS: MELATONIN 3 MG TAB PO PRN (22:24)
[2017-05-15] MEDS: VANCOMYCIN HCL INJ 1,000 MG in SODIUM CHLORIDE 0.9% 250ML 250 ML IVPB SCH (23:52)
[2017-05-16] MEDS: PANTOPRAZOLE SODIUM IV 40 MG VIAL IV SCH (01:19)
[2017-05-16] MEDS: ENOXAPARIN SODIUM 30 MG/0.3 ML SYG SUBCU SCH ×2 (01:20→12:28)
[2017-05-16] MEDS: HYDROcodone 10MG/APAP 325MG 1 EA TAB PO PRN ×2 (01:24→21:07)
[2017-05-16] MEDS ORDERED: CEFAZOLIN SODIUM 2 GRAMS IV 50 ML IVPB ONE ×4 (01:43→20:46)
[2017-05-16] MEDS: CEFAZOLIN SODIUM 2 GRAMS IV 2 GM in PREMIX BAG 1 BAG IVPB SCH ×3 (01:51→15:25)
[2017-05-16] MEDS: INSULIN LISPRO 100 UNITS/ML PEN SUBCU SCH ×4 (07:28→21:06)
--- NOTE | 2017-05-16 08:09 | PN ---
SUPERVISING PHYSICIAN: Nathanael Zaidi MD DATE: 05/15/17 SUBJECTIVE: The patient is lying in his hospital bed. He just returned from surgery where Dr. Avila, orthopedic surgeon, performed a hemiarthroplasty of the right hip. He is still fairly lethargic postoperatively, but he does wake up and answer some simple questions. His is at the bedside. OBJECTIVE: VITAL SIGNS: Afebrile. Pulse 82. Blood pressure 136/78. Respiratory rate 16. O2 saturation 95% on 2 liters nasal cannula. LUNGS: Clear to auscultation bilaterally. CARDIAC: Regular rate and rhythm. ABDOMEN: Soft, nondistended, nontender. Bowel sounds are positive. EXTREMITIES: He has a dressing to his right hip that is dry and intact. There is an ice bag in place. Bilateral pedal pulses are palpable at +2. There is no swelling. NEUROLOGIC: He is lethargic, but he awakens easily. LABORATORY: AM labs show WBC 13.9 down from 15.6 yesterday. Hemoglobin 11.9, hematocrit 36.6. Chemistries show sodium 138, potassium 4.5, chloride 107, carbon dioxide 23, BUN 21, creatinine 1.36. Blood glucoses have run from 169 to 249. Hemoglobin A1c is 8.1. Calcium 8.1. Postoperative hip x-ray per radiologic interpretation shows a satisfactory right hip replacement. All other labs and films have been reviewed via the EMR. ASSESSMENT: 1. Right hip fracture from same level fall, status post right hip hemiarthroplasty performed per Dr. Jose Avila, orthopedic surgeon, postoperative day 0. 2. Diabetes mellitus, type 2. 3. Renal insufficiency. 4. Myelodysplastic syndrome. 5. Polymyalgia rheumatica. 6. History of myocardial infarction. 7. Chronic leukocytosis since 2003. PLAN: We will continue present supportive care. I have restarted the remainder of his home medications. We will need to keep a close eye on his blood sugars as they are somewhat elevated today. His orthopedic issues will be per Dr. Avila. Tomorrow, he will begin strengthening and conditioning per physical therapy and we will follow that as needed. I have ordered some routine lab for in the morning. Otherwise, we will monitor the patient closely and follow as needed. Dr. Zaidi is the collaborating physician and available for consultation. #[id number] [facility]
--- NOTE | 2017-05-16 08:17 | CONS ---
CHIEF COMPLAINT: Right hip pain. HISTORY OF PRESENT ILLNESS: Mr. Watres is a 76-year-old male with a history of a fall. He fell on a couple of occasions and finally presented to the Emergency Room. He showed evidence of femoral neck fracture on x-ray. As such , he was admitted for definitive care. I was consulted by the medicine service for this. PAST MEDICAL HISTORY: 1. Renal insufficiency. 2. Coronary artery disease. 3. Diabetes. 4. Myocardial infarction. 5. Renal stones. 6. Seizure disorder. 7. Diabetic retinopathy. 8. Polymyalgia rheumatica. 9. Myelodysplastic syndrome. 10. Pancytopenia. 11. Chronic leukocytosis. PAST SURGICAL HISTORY: 1. Tonsillectomy. 2. Vasectomy. 3. Cervical fusion. 4. Carpal tunnel release. 5. Left knee surgery times three. 6. Cervical fusion. 7. Coronary artery stent placement, T5-6 vertebra. MEDICATIONS: Please see his current MAR. ALLERGIES: METHOTREXATE, IRON. SOCIAL HISTORY: He smokes one pack of cigarettes a day. He drinks alcohol, but does not use any illicit drugs. FAMILY HISTORY: None pertinent to today's complaint. REVIEW OF SYSTEMS: Negative except as indicated in the History of Present Illness. PHYSICAL EXAMINATION: VITAL SIGNS: Blood pressure 120/64. Respirations 15. O2 saturation 98% on room air. MENTAL STATUS: The patient is awake, alert, and is able to give a good history and participate in the physical. The patient is oriented to person, place and time. SKIN: Normal tone and turgor. HEENT: Normocephalic, atraumatic. Pupils equal, round and reactive. Mucosal membranes are moist. NECK: Normal range of motion. No thyromegaly, no lymphadenopathy. CHEST: Normal respiratory excursion. CARDIAC: Regular rate and rhythm. No murmurs, rubs or gallops. MUSCULOSKELETAL: Bilateral upper extremities show full active range of motion without pain. Sensation is intact in the extremities and they are warm and well perfused. He has no deformity. The left lower extremity shows no pain with range of motion of the hip or knee. The extremity is intact. There is no deformity and it is warm and well perfused. The right lower extremity shows intact sensation distally. It is warm and well perfused. He does have malalignment, but he is holding the hip in an abducted and internally rotated position. I am unable to move the leg because of the discomfort. IMAGING: X-rays and CT scan were done. There does appear to be a basicervical femoral neck fracture. ASSESSMENT: 1. Femoral neck fracture. PLAN: Given his history of falls, I think the most prudent for him would be a cemented hemiarthroplasty. I think it would decrease his risk of dislocation as well as allow him to start ambulating full weight-bearing immediately. To that end, we have discussed the risks, benefits and alternatives to that and informed consent was obtained for that procedure. #[id number] [facility]
[2017-05-16] MEDS: ALBUTEROL SULFATE 2.5 MG/3 ML VIAL NEB SCH ×4 (08:29→19:45)
--- NOTE | 2017-05-16 08:59 | OP ---
DATE OF PROCEDURE: 05/15/17 PREOPERATIVE DIAGNOSIS: 1. Right femoral neck fracture. POSTOPERATIVE DIAGNOSIS: 1. Right femoral neck fracture. PROCEDURE: 1. Right hemiarthroplasty. SURGEON: Jose Avila MD. BLACK TOP SPREADER MACHINE OPERATOR: Jose Guadalupe Palomo CST, SA-C. ANESTHESIA: General. COMPLICATIONS: None. FINDINGS: Basicervical femoral neck fracture. INDICATION: Mr. Waters has a history of a fall prior to presentation, however, there is some discussion of when and how it happened. Per his report, Mr. Waters does not have any alcohol use, however, I have gotten a history otherwise. Regardless, he has a fall at least once and probably twice over the course of the past week prior to presentation. He began having severe pain and presented to the Emergency Room where x-rays revealed a femoral neck fracture. Because of the presence of the fracture, we discussed the risks, benefits and alternatives to operative therapy. Informed consent was obtained. PROCEDURE: The patient was brought to the Operating Room and placed in supine position. Anesthesia was induced and the patient was transitioned into the lateral decubitus position. The leg and hemipelvis were sterilely prepped and draped and an incision was made centered on the greater trochanter with extension both proximally and distally. Dissection was carried down to the iliotibial band which was sharply incised along the course of its fibers. A Charnley retractor was placed and the abductor musculature was identified. The anterior one-third of the abductor musculature was elevated off the greater trochanter using electrocautery and the capsule was incised. The femoral head was removed and the primary femoral neck cut was made. The acetabulum was examined and found to be free of any significant defect, therefore attention was focused on the femur. The femoral canal was sequentially broached until an appropriate sized trial prosthesis was placed. A trial femoral head was placed and the hip was reduced. The hip was taken through a full range of motion and demonstrated stability without impingement or pending dislocation and the leg length appeared to be paresthesias. Following trialing, the trial component was removed and the femoral canal was prepared for cementation of the prosthesis. A distal cement restrictor was placed and the final component was cemented into place. The excess cement was removed and the remaining cement was allowed to cure. The final head was impacted and the hip was reduced, taken through a full range of motion, and found to be stable without impingement. The wound was thoroughly irrigated and the abductor musculature was reapproximated to the greater trochanter through drill holes using Ethibond. The repair was augmented with PDS suture and the iliotibial band was subsequently closed. The subcutaneous tissues were closed with a combination of running and interrupted subcuticular stitches, a sterile dressing was placed , and the patient was transitioned into the supine position. The patient was awoken from anesthesia and taken to the Recovery Room in stable condition. POSTOPERATIVE INSTRUCTIONS: He will be weight-bearing as tolerated on postoperative day 1. COMPONENTS: [employer] cemented stem with 51 head and size 7 stem. #[id number] [facility]
[2017-05-16] MEDS: SODIUM CHLORIDE 0.45% 1000ML 1,000 ML IVS PRN (09:27)
[2017-05-16] MEDS: ATENOLOL 25 MG TAB PO SCH (09:28)
[2017-05-16] MEDS: HYDROcodone 5MG/APAP 325MG 1 EA TAB PO PRN ×2 (09:29→15:25)
[2017-05-16] MEDS: predniSONE 5 MG TAB PO SCH ×2 (09:29→21:07)
[2017-05-16] MEDS ORDERED: SODIUM CHLORIDE 0.9% 250ML 250 ML ONE ×2 (11:58→20:46)
[2017-05-16] MEDS ORDERED: VANCOMYCIN HCL INJ 1,000 MG VIAL IVPB ONE ×2 (11:59→20:47)
[2017-05-16] MEDS: VANCOMYCIN HCL INJ 1,000 MG in SODIUM CHLORIDE 0.9% 250ML 250 ML IVPB SCH ×2 (12:27→23:39)
--- NOTE | 2017-05-16 13:41 | PN ---
SUPERVISING PHYSICIAN: Nathanael Zaidi MD DATE: 05/16/17 SUBJECTIVE: The patient is lying in bed. He has no complaints of chest pain, shortness of breath, coughing, nausea, vomiting, diarrhea or constipation. His hip hurts some, but something that he did not expect. His is at the bedside and she says she feels like he is progressing well. OBJECTIVE: VITAL SIGNS: Afebrile. Heart rate 77. Blood pressure 116/73. Respiratory rate 18. O2 saturation 94% on 2 liters nasal cannula. He did drop as low as 87%, but is now at 94. LUNGS: Essentially clear to auscultation bilaterally. CARDIAC: Regular rate and rhythm. ABDOMEN: Soft, nondistended, nontender. Bowel sounds are positive. EXTREMITIES: He has a dressing to his right hip that is dry and intact. Bilateral pedal pulses are palpable at +2. NEUROLOGIC: Awake, alert and oriented times three. LABORATORY: WBC 14, hemoglobin 9.7, hematocrit 29.7, platelet count 175. Blood sugars have run between 140 and 271. Sodium 136, potassium 4.4, chloride 105, carbon dioxide 24, BUN 19, creatinine 1.36, calcium 7.4. All other labs and films have been reviewed via the EMR. ASSESSMENT: 1. Right hip fracture from same level fall, status post right hip hemiarthroplasty performed per Dr. Jose Avila, orthopedic surgeon, postoperative day 1. 2. Diabetes mellitus, type 2. 3. Renal insufficiency. 4. Myelodysplastic syndrome. 5. Polymyalgia rheumatica. 6. History of myocardial infarction. 7. Chronic leukocytosis since 2003. PLAN: We will continue present supportive care. His blood sugars are still somewhat elevated so we may have to go up on his sliding scale. Orthopedic issues will be per Dr. Avila. He will continue his strengthening and conditioning per physical therapy. Joycelyn Darling, our director of food and nutrition services spoke with the family at length and we may do Swing Bed admission in the next couple of days. The patient lives out at [facility] and he may benefit from a few days in the hospital as a Swing Bed patient for strengthening and conditioning. His hemoglobin dropped a little bit today, so I will check a hemoglobin and hematocrit tomorrow. Otherwise, we will continue to monitor the patient closely and follow as needed. Dr. Zaidi is the collaborating physician and available for consultation. #[id number] [facility]
[2017-05-16] MEDS ORDERED: ATORVASTATIN 10 MG TAB PO SCH (21:00)
[2017-05-16] MEDS: INSULIN DETEMIR 100 UNITS/ML PEN SUBCU SCH (21:05)
[2017-05-16] MEDS: NON-FORMULARY MEDICATION 1 EA MIS (Duloxetine Hcl [Cymbalta] 60 MG) PO SCH (21:08)
[2017-05-17] MEDS: CEFAZOLIN SODIUM 2 GRAMS IV 2 GM in PREMIX BAG 1 BAG IVPB SCH ×3 (00:18→17:23)
[2017-05-17] MEDS: ENOXAPARIN SODIUM 30 MG/0.3 ML SYG SUBCU SCH ×2 (00:18→13:33)
[2017-05-17] MEDS: PANTOPRAZOLE SODIUM IV 40 MG VIAL IV SCH (02:16)
[2017-05-17] MEDS: IV SET AND CAP CHANGE INJ INJ SCH (02:17)
[2017-05-17] MEDS: HYDROcodone 10MG/APAP 325MG 1 EA TAB PO PRN ×2 (03:39→20:19)
[2017-05-17] MEDS ORDERED: HALOPERIDOL LACTATE INJ 5 MG/ML VIAL IM ONE (03:44)
[2017-05-17] MEDS ORDERED: diphenhydrAMINE HCL 50 MG/ML VIAL IV ONE (03:45)
[2017-05-17] MEDS: INSULIN LISPRO 100 UNITS/ML PEN SUBCU SCH ×4 (07:40→21:16)
[2017-05-17] MEDS ORDERED: CEFAZOLIN SODIUM 2 GRAMS IV 50 ML IVPB ONE ×3 (07:45→20:07)
--- NOTE | 2017-05-17 08:16 | PN ---
DATE: 05/17/17 SUBJECTIVE: Mr. Waters is alert this morning, but apparently overnight he was having some issues with alcohol withdrawal symptoms. He pulled out his IV a couple of times and pulled off his dressing. OBJECTIVE: Afebrile. Vital signs stable. Wound is clean. There are no signs or symptoms of infection. ASSESSMENT: Status post hemiarthroplasty. PLAN: He will continue with weight-bearing as tolerated. We will continue to manage his alcohol withdrawal symptoms from a medical standpoint. We will get him on Swing Bed probably whenever he is able to participate better in physical therapy. #[id number] [facility]
[2017-05-17] MEDS: SODIUM CHLORIDE 0.45% 1000ML 1,000 ML IVS PRN (08:54)
[2017-05-17] MEDS: predniSONE 5 MG TAB PO SCH ×2 (08:58→20:19)
[2017-05-17] MEDS: ALBUTEROL SULFATE 2.5 MG/3 ML VIAL NEB SCH ×4 (08:58→19:30)
[2017-05-17] MEDS: ATENOLOL 25 MG TAB PO SCH (08:58)
[2017-05-17] MEDS ORDERED: SODIUM CHLORIDE 0.9% 250ML 250 ML ONE ×2 (13:14→20:06)
[2017-05-17] MEDS ORDERED: VANCOMYCIN HCL INJ 1,000 MG VIAL IVPB ONE ×2 (13:14→20:08)
[2017-05-17] MEDS: VANCOMYCIN HCL INJ 1,000 MG in SODIUM CHLORIDE 0.9% 250ML 250 ML IVPB SCH (13:20)
--- NOTE | 2017-05-17 20:02 | PN ---
DATE: 05/17/17 SUPERVISING PHYSICIAN: Nathanael Zaidi M.D. SUBJECTIVE: The patient has had some episodes of confusion postoperatively last night. He pulled out his IVs and pulled some dressings off. This morning , he is much more calm but he is slightly diminished neurologically due to administration of some medications to include Haldol and Ativan last night. He remains afebrile. OBJECTIVE: VITAL SIGNS: Temperature 97.4, pulse 88, blood pressure 116/72, respirations 18, satting 92% on room air. I's and O's show a positive balance of 2318 with 3443 in, 1125 out. Weight is 72.5 kg. CHEST: Lungs were clear to auscultation, just diminished towards the bases. HEART: Regular rate and rhythm. ABDOMEN: Soft, non-tender. Positive bowel sounds. EXTREMITIES: No clubbing, cyanosis or edema. Right hip has a dressing in place which is clean and dry. No signs of infection. Pulses distally are strong. Capillary refill is brisk. NEUROLOGIC: He is alert to himself and location, but does not know the year and is somewhat lethargic at times, but he is easily aroused. LABORATORY: White count 11.5, hemoglobin 9.8, hematocrit 30.2, platelet count 197,000. Differential continues to show a left shift. Chemistries: Glucoses have been 101 to 225. MICROBIOLOGY: Blood cultures remain negative after 3 days. RADIOLOGY: No additional radiographic studies are available for review today. ASSESSMENT: 1. Right hip fracture from same level fall status post hip hemiarthroplasty repair by Dr. Jose Avila, orthopedic surgeon, postoperative day 2. 2. Diabetes mellitus type 2. 3. Renal insufficiency improving with fluids. 4. Myelodysplastic syndrome. 5. Polymyalgia rheumatica. 6. History of myocardial infarctions. 7. Chronic leukocytosis since 2003. 8. History of extensive alcohol usage with concerns for underlying withdrawals with the patient having some postoperative confusion. PLAN: Will continue to follow the patient closely. Will hold off any sedative medications as he had some difficulty performing his physical therapy today due to sedation. Will continue to help reorient if needed. Anticipate hopefully being able to change to Swing Bed at some point in the next couple of days for continued strengthening and conditioning. Hemoglobin and hematocrit are stable. Will repeat laboratory studies in the morning and recheck renal function, and again hold off on any sedative medications such as Librium until the patient is much more alert. Until discharge, will continue to monitor and treat appropriately. #[id number] [facility]
[2017-05-17] MEDS ORDERED: DULoxetine HCL 30 MG CAP PO ONE (20:06)
[2017-05-17] MEDS: MELATONIN 3 MG TAB PO PRN (20:19)
[2017-05-17] MEDS: NON-FORMULARY MEDICATION 1 EA MIS (Duloxetine Hcl [Cymbalta] 60 MG) PO SCH (20:22)
[2017-05-17] MEDS: INSULIN DETEMIR 100 UNITS/ML PEN SUBCU SCH (21:17)
[2017-05-18] MEDS: VANCOMYCIN HCL INJ 1,000 MG in SODIUM CHLORIDE 0.9% 250ML 250 ML IVPB SCH (00:30)
[2017-05-18] MEDS: ENOXAPARIN SODIUM 30 MG/0.3 ML SYG SUBCU SCH (00:44)
[2017-05-18] MEDS: HYDROcodone 10MG/APAP 325MG 1 EA TAB PO PRN (02:25)
[2017-05-18] MEDS ORDERED: PANTOPRAZOLE SODIUM TAB 40 MG PO ONE (04:05)
[2017-05-18 06:02] VITALS: BP 145/76; TEMP 98.2
[2017-05-18] MEDS ORDERED: PANTOPRAZOLE SODIUM TAB 40 MG PO SCH (06:30)
[2017-05-18] MEDS ORDERED: CEFAZOLIN SODIUM 2 GRAMS IV 50 ML IVPB ONE (07:54)
[2017-05-18] MEDS: INSULIN LISPRO 100 UNITS/ML PEN SUBCU SCH (08:21)
[2017-05-18] MEDS: ATENOLOL 25 MG TAB PO SCH (08:23)
[2017-05-18] MEDS: CEFAZOLIN SODIUM 2 GRAMS IV 2 GM in PREMIX BAG 1 BAG IVPB SCH ×2 (08:23)
[2017-05-18] MEDS: predniSONE 5 MG TAB PO SCH (08:24)
[2017-05-18] MEDS: ALBUTEROL SULFATE 2.5 MG/3 ML VIAL NEB SCH (08:40)
[2017-05-18 11:09] VITALS: O2SAT 90
--- NOTE | 2017-05-18 21:16 | DS ---
SUPERVISING PHYSICIAN: Nathanael Zaidi M.D. DISCHARGE DIAGNOSIS: 1. Right hip fracture from same level fall status post hemiarthroplasty by Dr. Jose Avila, orthopedic surgeon, postoperative day 3 admitted to Swing Bed for continuation of her conditioning, strengthening and rehabilitation. 2. Diabetes mellitus type 2. 3. Renal insufficiency, stable with fluids prior to discharge from Acute Care. 4. Myelodysplastic syndrome. 5. Polymyalgia rheumatica. 6. History of myocardial infarctions. 7. Chronic leukocytosis since 2003. 8. Questionable alcohol abuse with some confusion postoperatively but improved prior to discharge from Acute Care and admitted to Swing Bed. HISTORY OF PRESENT ILLNESS: Mr. Waters is a 76-year-old male patient who was taking a shower on Sunday morning to get ready to go to [facility]. He slipped and fell in the shower, but was able to get up at that time. As he stepped out of the shower, he slipped and fell again, but was able to get back into bed. He decided to go to bed and he was in bed for several hours. Later that afternoon , his had a difficult time getting him out of bed. In fact, he had to scoot on chairs to get into the bed. Later that evening, she actually helped him to urinate and as he got up on the side of the bed, he slid down onto the floor. She could not get him up, so EMS was called and he was brought to the hospital. In the hospital, Emergency Room physician did do workup with a lower extremity CT scan and per radiologic interpretation showed a mildly comminuted and impacted subcapital fracture of the right hip with sclerosis of the margins of the fracture concerning for subacute nature rather than acute. He also hit the right side of his face and had a CT of the head and per radiologic interpretation showed no acute intracranial abnormality with atrophy and microvascular ischemic changes noted. He was then admitted to the hospital for suicidal consultation. Dr. Avila saw the patient in surgical consultation on and the patient was diagnosed with a femoral neck fracture. He was taken to surgery on 05/15/17 and had a right hemiarthroplasty completed on the right femoral neck fracture. He was seen in the immediate postoperative state and followed through his physical therapy efforts. On date of discharge to Swing Bed, it was felt that he had progressed minimally and was in need of additional rehabilitation and reconditioning, therefore he was unsafe to discharge home and was admitted to Swing Bed. LABORATORY: White count on admission showed leukocytosis of 16.8, prior to discharge this has normalized to 9.8. Initial hemoglobin was 14.5, hematocrit 44.5, at discharge hemoglobin was 9.2, hematocrit 27.6, platelet count was all within normal limits, at discharge was 197,000. Differential did show a continued left shift. Chemistries on admission showed hyperkalemia of 5.1 with BUN 24, creatinine 1.62. Liver functions all were within normal limits. Lactic acid was normal at 2.0, magnesium normal at 2.0. Blood sugars ranged from 83 to 271. After treatment and fluids and prior to discharge, his electrolytes had normalized, potassium 3.9, BUN was down to 21, creatinine 1.42. Urinalysis on admission showed 15 ketones, otherwise within normal limits. He had a repeat urinalysis on 05/15/17 that had 100 glucose, trace intact blood with 3 to 5 RBCs, otherwise within normal limits. Toxicology on admission showed alcohol level was less than 5.40. MICROBIOLOGY: He had 2 sets of blood cultures that were negative at 4 days. RADIOLOGY: Initially in the Emergency Department, he had a head CT without contrast and per radiology interpretation there were no acute intracranial abnormalities noted. He also had a lower extremity CT and per radiology interpretation there was noted a mildly comminuted and impacted subcapital fracture of the right hip with sclerosis of the margins of the fracture concerning for subacute nature rather than acute. Please see that report for full details. He had a hip x-ray that also showed an acute angulated right hip fracture. He had a chest x-ray that per radiology interpretation showed coarsened perihilar interstitial markings demonstrated. No significant change, likely reflecting interstitial scarring/fibrosis. No new confluent airspace consolidations, pleural effusions or pneumothorax were noted. He had additional radiographic studies that included a postoperative pelvis x-ray and hip x-ray which shows satisfactory right hip replacement. No additional radiographic studies were completed. SURGICAL CONSULTATION: Dr. Avila, Orthopedic Services. PROCEDURES: Left hemiarthroplasty performed by Dr. Jose Avila on 05/15/17. Please refer to the Operative Report for full details. HOSPITAL COURSE: Mr. Waters was admitted as noted in the History of Present Illness on 05/13/17 secondary to right hip pain and it was found he had a right hip fracture. He was admitted in stable condition and on 05/15/17 had a right hemiarthroplasty performed by Dr. Jose Avila. No complications were noted through surgery. He did have a postoperative confusional state for 24 to 48 hours and it was felt possibly it might be related to some alcohol consumption on a chronic basis, but he responded well to treatment with some Haldol and Ativan, and on day of discharge on 05/18/17, the patient was back to mental status baseline. Unfortunately, he was unable to complete physical therapy to satisfactory efforts secondary to the confusional state and it was felt that he needed additional days of physical therapy and reconditioning, therefore he was discharged to be readmitted to Swing Bed. PLAN: The patient was discharge on 05/18/17 from Acute Care and admitted to Swing Bed for Orthopedic Services and Physical Therapy for reconditioning secondary to postoperative state of right hip hemiarthroplasty status post same level fall. [facility][id number] [facility]
== END 2017-05-18 09:30 | disposition swing bed (61) | DRG 469 ==
LOC: ER 22:17 → MS 05-14 00:27
PROVIDERS: ADMIT Nurse Practitioner Acute Care; ATTEND Nurse Practitioner Family
PROC: 0SRR0J9 Replacement of Right Hip Joint, Femoral Surface with Synthetic Substitute, Cemented, Open Approach (ICD-10-PCS; principal; 2017-05-15 10:15)
DX: S72.011A Unspecified intracapsular fracture of right femur, initial encounter for closed fracture (principal); D61.811 Other drug-induced pancytopenia; F10.239 Alcohol dependence with withdrawal, unspecified; W18.2XXA Fall in (into) shower or empty bathtub, initial encounter; I25.10 Atherosclerotic heart disease of native coronary artery without angina pectoris; M35.3 Polymyalgia rheumatica; E11.319 Type 2 diabetes mellitus with unspecified diabetic retinopathy without macular edema; F17.210 Nicotine dependence, cigarettes, uncomplicated; T43.4X5A Adverse effect of butyrophenone and thiothixene neuroleptics, initial encounter; T42.4X5A Adverse effect of benzodiazepines, initial encounter; Y92.002 Bathroom of unspecified non-institutional (private) residence as the place of occurrence of the external cause; Y93.E1 Activity, personal bathing and showering; I25.2 Old myocardial infarction; Z95.5 Presence of coronary angioplasty implant and graft; Z98.1 Arthrodesis status; Z88.8 Allergy status to other drugs, medicaments and biological substances; Z79.82 Long term (current) use of aspirin; Z79.899 Other long term (current) drug therapy; Z79.891 Long term (current) use of opiate analgesic; Z79.52 Long term (current) use of systemic steroids; Z79.4 Long term (current) use of insulin; Z86.73 Personal history of transient ischemic attack (TIA), and cerebral infarction without residual deficits

== ENCOUNTER 2017-05-18 10:25 | Inpatient (IN) | payer MEDICARE ==
[2017-05-18] MEDS ORDERED: ACETAMINOPHEN 500 MG TAB PO PRN (10:40)
[2017-05-18] MEDS ORDERED: GLUCAGON INJ 1 MG VIAL SUBCU PRN (10:40)
[2017-05-18] MEDS ORDERED: SODIUM PHOS/BIPHOS ENEMA ADULT 133 ML BTTL PR PRN (10:40)
[2017-05-18] MEDS ORDERED: DEXTROSE 50% 25 GM/50 ML SYG IV PRN (10:40)
[2017-05-18] MEDS ORDERED: MAGNESIUM HYDROXIDE 30 ML UD PO PRN (10:40)
[2017-05-18] MEDS: HYDROcodone 5MG/APAP 325MG 1 EA TAB PO PRN (10:55)
[2017-05-18] MEDS: INSULIN LISPRO 100 UNITS/ML PEN SUBCU SCH ×3 (12:37→20:53)
--- NOTE | 2017-05-18 13:21 | HP ---
SUPERVISING PHYSICIAN: Nathanael Zaidi MD REASON FOR SWING BED ADMISSION: Strengthening and conditioning status post hip fracture. HISTORY OF PRESENT ILLNESS: Mr. Waters is a 76-year-old male patient who was taking a shower on Sunday morning to get ready to go to [facility]. He slipped and fell in the shower, but was able to get up at that time. As he stepped out of the shower, he slipped and fell again, but was able to get back into his bedroom. He decided to go to bed and he was in bed for several hours. Later that afternoon, his had a difficult time getting him out of bed. In fact, he had to scoot on chairs to get into the bed. Later that evening, she actually helped him to urinate and as he got up on the side of the bed, he slid down onto the floor. She could not get him up, so EMS was called and he was brought to the hospital. In the hospital, Emergency Room physician did a workup and he had a lower extremity CT scan per radiologic interpretation showed a mildly comminuted and impacted subcapital fracture of the right hip with sclerosis of the margins of the fracture concerning for subacute nature rather than acute. He also hit the right side of his face and his head CT per radiologic interpretation showed no acute intracranial abnormality with atrophy and microvascular ischemic changes. He was admitted to the hospital for surgical consultation. Dr. Avila saw the patient in surgical consultation on and the patient was diagnosed with a femoral neck fracture. He was taken to surgery on 05/15/17 and had a right hemiarthroplasty completed on the right femoral neck fracture. He as seen in the immediate postoperative state and followed through his physical therapy efforts. On date of discharge to Swing Bed, it was felt that he had progressed minimally and was in need for additional rehabilitation and reconditioning to ensure he was safe once discharged home. PAST MEDICAL HISTORY: 1. Acute renal insufficiency with a baseline creatinine of about 1.45. 2. Coronary artery disease. 3. Diabetes mellitus, type 2. 4. Myocardial infarction in 2000 with 2 to 3 stent placements. 5. Renal stones in 1999. 6. Remote history of seizure disorder. He only had one grand mal seizure in the 1960s, but has had no seizure since and is not on any medications. 7. Diabetic retinopathy. 8. Polymyalgia rheumatica diagnosed in 2003. 9. Myelodysplastic syndrome. 10. Pancytopenia due to medications. He is followed by Dr. Yuan at [facility]. 11. Chronic leukocytosis since 2003. PAST SURGICAL HISTORY: 1. Recent right hemiarthroplasty as noted above. 2. Tonsillectomy. 3. Vasectomy times 2. 4. Cervical fusion with hip allograft. 5. Carpal tunnel release. 6. Rib removal in 1980 and in 1984. 7. Left knee surgery times 3. 8. Cervical fusion with cadaver bone graft in 1994. 9. Coronary artery stent placement per Dr. Mina times 2 to 3. 10. T5-6 vertebrectomy. 11. Abdominal aortogram with runoff with normal renals and he did have a stent placement. CURRENT MEDICATIONS: Please refer to [facility] electronic medical record updated list for verified medications. ALLERGIES: 1. METHOTREXATE. 2. IRON PILLS. FAMILY HISTORY: Noncontributory. SOCIAL HISTORY: He is retired. He is . He lives at [facility]. He has two children. He smokes one pack of cigarettes per day and has for 50 years. He drinks ETOH very infrequently. He denies any illicit drug use. REVIEW OF SYSTEMS: Negative at time of admission other than history of present illness for admission to [facility]. PHYSICAL EXAMINATION: VITAL SIGNS: Temperature 98.2. Heart rate 84. Blood pressure 145/72. Respiratory rate 18. O2 saturation 96% on room air. Admission weight 84.4 kg. GENERAL: The patient is alert and oriented times three. He appears to be in no acute distress, very comfortable at time of admission to [facility]. HEENT: Tympanic membranes clear bilaterally. Oropharynx is pink, moist without any lesions. NECK: Supple, nontender with full range of motion. No jugular venous distention noted. CHEST: Lungs clear to auscultation, slightly diminished at the bases. No rhonchi, wheezes, or rales. CARDIOVASCULAR: Regular rate and rhythm without any appreciable murmurs, gallops, or rubs. ABDOMEN: Soft, nontender. Positive bowel sounds. EXTREMITIES: There is no cyanosis, clubbing or edema. There is a dressing in place on the right hip that is clean and dry. No signs of infection. Distal pulses are strong with brisk capillary refill. NEUROLOGIC: The patient is alert and oriented times three. Cranial nerves II- XII are grossly intact. Facial features are symmetrical. Extraocular movements are within normal limits. There are no notable localizing or focalizing neuromotor deficits. LABORATORY: CBC, CMP, chest x-ray pending on admission. ASSESSMENT: 1. Right hip fracture from same level fall status post hemiarthroplasty by Dr. Jose Avlia, orthopedic surgeon, postoperative day 3, admitted to Swing Bed for continuation of reconditioning, strengthening and rehabilitation. 2. Diabetes mellitus, type 2. 3. Renal insufficiency, stable with fluids prior to discharge from Acute Care. 4. Myelodysplastic syndrome. 5. Polymyalgia rheumatica. 6. History of myocardial infarctions. 7. Chronic leukocytosis since 2003. 8. Question of extensive alcohol usage with the patient having some postoperative confusion, but improved prior to discharge from Acute Care to Swing Bed. PLAN: The patient will be admitted to Swing Bed today and started on orthopedic protocols for Swing Bed and continue with physical therapy under the guidance of orthopedic services and physical therapy. We will resume his home medications once updated and verified. He will be started on Xarelto 10 mg for 31 days as per protocol. We will anticipate length of stay to be least 3 to 7 days until the patient is stable and safe enough to be discharged home. Until then, we will continue to monitor the patient closely and treat appropriately. #[id number] [facility]
[2017-05-18] MEDS: HYDROcodone 10MG/APAP 325MG 1 EA TAB PO PRN ×2 (14:40→19:37)
--- NOTE | 2017-05-18 19:17 | PCM.CORE ---
Physician DVT/VTE - Prophylaxis Currently: Patient already on anticoagulation therapy - xarelto - Nurse DVT Assessment & Total Each Risk Factor Represents 3 Points: Age over 75 years, Medical PT with Hx of [place], CHF, Severe infection/sepsis Each Risk Factor Represents 1 Point: Hx Major Surgery <1month DVT Assessment Score: 7 - 5 or more Very High Risk Treatments: Early Ambulation *, Sequential Compression Device
[2017-05-18] MEDS ORDERED: predniSONE 5 MG TAB ONE (19:26)
[2017-05-18] MEDS ORDERED: DULoxetine HCL 30 MG CAP PO ONE (19:26)
[2017-05-18] MEDS: DULoxetine HCL 30 MG CAP PO SCH (20:03)
[2017-05-18] MEDS: predniSONE 5 MG TAB PO SCH (20:03)
[2017-05-18] MEDS: INSULIN DETEMIR 100 UNITS/ML PEN SUBCU SCH (20:53)
[2017-05-19] MEDS: HYDROcodone 10MG/APAP 325MG 1 EA TAB PO PRN ×3 (00:02→20:34)
[2017-05-19] MEDS: HYDROcodone 5MG/APAP 325MG 1 EA TAB PO PRN ×2 (05:01→10:48)
[2017-05-19] MEDS: INSULIN LISPRO 100 UNITS/ML PEN SUBCU SCH ×4 (08:44→21:27)
[2017-05-19] MEDS: ATENOLOL 25 MG TAB PO SCH (09:10)
[2017-05-19] MEDS: DOCUSATE SODIUM 100 MG CAP PO SCH (09:11)
[2017-05-19] MEDS: RIVAROXABAN 10 MG TAB PO SCH (09:11)
[2017-05-19] MEDS: predniSONE 5 MG TAB PO SCH ×2 (09:11→20:34)
[2017-05-19] MEDS: IBUPROFEN 400 MG TAB PO PRN (17:22)
[2017-05-19] MEDS: DULoxetine HCL 30 MG CAP PO SCH (20:34)
[2017-05-19] MEDS: INSULIN DETEMIR 100 UNITS/ML PEN SUBCU SCH (21:28)
[2017-05-19] MEDS: MELATONIN 3 MG TAB PO PRN (21:30)
[2017-05-20] MEDS: HYDROcodone 5MG/APAP 325MG 1 EA TAB PO PRN ×2 (01:49→19:50)
[2017-05-20] MEDS: IBUPROFEN 400 MG TAB PO PRN ×2 (06:02→13:45)
[2017-05-20] MEDS: INSULIN LISPRO 100 UNITS/ML PEN SUBCU SCH ×4 (07:34→20:59)
[2017-05-20] MEDS: RIVAROXABAN 10 MG TAB PO SCH (08:17)
[2017-05-20] MEDS: predniSONE 5 MG TAB PO SCH ×2 (08:17→20:24)
[2017-05-20] MEDS: ATENOLOL 25 MG TAB PO SCH (08:17)
[2017-05-20] MEDS: DOCUSATE SODIUM 100 MG CAP PO SCH (08:17)
[2017-05-20] MEDS: HYDROcodone 10MG/APAP 325MG 1 EA TAB PO PRN ×2 (08:21→15:12)
[2017-05-20] MEDS ORDERED: ATORVASTATIN 10 MG TAB ONE (19:33)
[2017-05-20] MEDS: DULoxetine HCL 30 MG CAP PO SCH (20:23)
[2017-05-20] MEDS: ATORVASTATIN 10 MG TAB PO SCH (20:24)
[2017-05-20] MEDS: INSULIN DETEMIR 100 UNITS/ML PEN SUBCU SCH (21:11)
[2017-05-21] MEDS: HYDROcodone 10MG/APAP 325MG 1 EA TAB PO PRN ×3 (00:07→19:36)
[2017-05-21] MEDS: HYDROcodone 5MG/APAP 325MG 1 EA TAB PO PRN (04:06)
[2017-05-21] MEDS: INSULIN LISPRO 100 UNITS/ML PEN SUBCU SCH ×4 (08:02→21:12)
--- NOTE | 2017-05-21 08:35 | PN ---
DATE: 05/21/17 SUBJECTIVE: Mr. Waters is doing well and he his confusion is cleared up somewhat. OBJECTIVE: Afebrile. Vital signs stable. The wound is clean. There are no signs or symptoms of infection. ASSESSMENT: Status post hemiarthroplasty. PLAN: He will continue with physical therapy. He will be discharged when appropriate. #[id number] [facility]
[2017-05-21] MEDS: ATENOLOL 25 MG TAB PO SCH (09:31)
[2017-05-21] MEDS: DOCUSATE SODIUM 100 MG CAP PO SCH (09:31)
[2017-05-21] MEDS: RIVAROXABAN 10 MG TAB PO SCH (09:31)
[2017-05-21] MEDS: predniSONE 5 MG TAB PO SCH ×2 (09:31→21:14)
[2017-05-21] MEDS: IBUPROFEN 400 MG TAB PO PRN ×2 (09:32→21:14)
[2017-05-21] MEDS: MELATONIN 3 MG TAB PO PRN (21:14)
[2017-05-21] MEDS: DULoxetine HCL 30 MG CAP PO SCH (21:14)
[2017-05-21] MEDS: INSULIN DETEMIR 100 UNITS/ML PEN SUBCU SCH (21:14)
--- NOTE | 2017-05-21 23:07 | PN ---
DATE: 05/21/17 SUPERVISING PHYSICIAN: Prabhu Haque M.D. SUBJECTIVE: The patient continues to do well with physical therapy. He remains afebrile. He has had no complications. OBJECTIVE: VITAL SIGNS: Temperature 98.5, pulse 67, blood pressure 138/73, respirations 20, satting 93% on room air. I's and O's are well balanced. Weight 70.7 kg. CHEST: Clear to auscultation bilaterally. HEART: Regular rate and rhythm. ABDOMEN: Soft, non-tender. Positive bowel sounds. Right hip has a surgical dressing in place that is clean and dry. No signs of infection. Distally pulses are strong. Capillary refill is brisk. NEUROLOGIC: He is alert and oriented times three. LABORATORY: Admission CBC showed white count 9.3, hemoglobin 9.7, hematocrit 29.8, platelet count 237,000. Chemistries on admission showed electrolytes to be within normal limits, potassium 4.1, BUN 21, creatinine 0.109, calcium normal at 8.2. Blood sugars have been fairly well controlled anywhere from 83 to 240, but he has had a few that were elevated with the highest being 396. ASSESSMENT: 1. Right hip fracture from same level fall requiring a right hemiarthroplasty performed by Dr. Jose Avila admitted to Swing Bed for continued reconditioning and strengthening. 2. Diabetes mellitus type 2 fairly well controlled. 3. Renal insufficiency, improved with IV fluids prior to admission to Swing Bed. 4. Mild dysplastic syndrome. 5. Polymyalgia rheumatica. 6. History of myocardial infarction. 7. Chronic leukocytosis since 2003 but showing a normal white count on admission to Swing Bed. PLAN: Will continue to follow the patient as he progresses through his Swing Bed admission until discharge and ultimately discharge based off his physical therapy goals are being met. Until then, will continue to monitor closely and treat appropriately. #[id number] [facility]
[2017-05-22] MEDS: HYDROcodone 5MG/APAP 325MG 1 EA TAB PO PRN (00:40)
[2017-05-22] MEDS: HYDROcodone 10MG/APAP 325MG 1 EA TAB PO PRN ×3 (07:32→18:22)
[2017-05-22] MEDS: INSULIN LISPRO 100 UNITS/ML PEN SUBCU SCH ×4 (07:32→21:07)
[2017-05-22] MEDS: ATENOLOL 25 MG TAB PO SCH (09:12)
[2017-05-22] MEDS: RIVAROXABAN 10 MG TAB PO SCH (09:12)
[2017-05-22] MEDS: DOCUSATE SODIUM 100 MG CAP PO SCH (09:12)
[2017-05-22] MEDS: predniSONE 5 MG TAB PO SCH ×2 (09:13→21:47)
[2017-05-22] MEDS: IBUPROFEN 400 MG TAB PO PRN ×2 (11:10→21:48)
[2017-05-22] MEDS: INSULIN DETEMIR 100 UNITS/ML PEN SUBCU SCH (21:46)
[2017-05-22] MEDS: MELATONIN 3 MG TAB PO PRN (21:47)
[2017-05-22] MEDS: DULoxetine HCL 30 MG CAP PO SCH (21:55)
[2017-05-23] MEDS: HYDROcodone 10MG/APAP 325MG 1 EA TAB PO PRN ×4 (06:16→23:55)
[2017-05-23] MEDS: INSULIN LISPRO 100 UNITS/ML PEN SUBCU SCH ×4 (08:19→21:46)
[2017-05-23] MEDS: predniSONE 5 MG TAB PO SCH ×2 (08:46→20:23)
[2017-05-23] MEDS: RIVAROXABAN 10 MG TAB PO SCH (08:46)
[2017-05-23] MEDS: DOCUSATE SODIUM 100 MG CAP PO SCH (08:46)
[2017-05-23] MEDS: ATENOLOL 25 MG TAB PO SCH (08:47)
[2017-05-23] MEDS: IBUPROFEN 400 MG TAB PO PRN ×2 (10:36→17:57)
[2017-05-23] MEDS: MELATONIN 3 MG TAB PO PRN (20:23)
[2017-05-23] MEDS: ATORVASTATIN 10 MG TAB PO SCH (20:23)
[2017-05-23] MEDS: DULoxetine HCL 30 MG CAP PO SCH (20:23)
[2017-05-23] MEDS: INSULIN DETEMIR 100 UNITS/ML PEN SUBCU SCH (21:46)
[2017-05-24] MEDS: HYDROcodone 10MG/APAP 325MG 1 EA TAB PO PRN ×3 (04:43→18:14)
[2017-05-24] MEDS: RIVAROXABAN 10 MG TAB PO SCH (08:51)
[2017-05-24] MEDS: DOCUSATE SODIUM 100 MG CAP PO SCH (08:51)
[2017-05-24] MEDS: ATENOLOL 25 MG TAB PO SCH (08:51)
[2017-05-24] MEDS: predniSONE 5 MG TAB PO SCH ×2 (08:51→20:41)
[2017-05-24] MEDS: INSULIN LISPRO 100 UNITS/ML PEN SUBCU SCH ×4 (09:25→21:15)
[2017-05-24] MEDS: IBUPROFEN 400 MG TAB PO PRN ×2 (15:31→21:21)
[2017-05-24] MEDS: DULoxetine HCL 30 MG CAP PO SCH (20:41)
[2017-05-24] MEDS: INSULIN DETEMIR 100 UNITS/ML PEN SUBCU SCH (21:15)
[2017-05-24] MEDS: MELATONIN 3 MG TAB PO PRN (21:21)
[2017-05-24 23:45] VITALS: O2SAT 96
[2017-05-25] MEDS: HYDROcodone 10MG/APAP 325MG 1 EA TAB PO PRN ×2 (00:33→07:56)
[2017-05-25] MEDS: INSULIN LISPRO 100 UNITS/ML PEN SUBCU SCH ×2 (07:52→12:15)
[2017-05-25] MEDS: ATENOLOL 25 MG TAB PO SCH (09:24)
[2017-05-25] MEDS: RIVAROXABAN 10 MG TAB PO SCH (09:24)
[2017-05-25] MEDS: predniSONE 5 MG TAB PO SCH (09:24)
[2017-05-25] MEDS: DOCUSATE SODIUM 100 MG CAP PO SCH (09:24)
[2017-05-25 16:02] VITALS: BP 131/71; TEMP 97.4
--- NOTE | 2017-05-28 14:15 | DS ---
SUPERVISING PHYSICIAN: Prabhu Haque MD DISCHARGE DIAGNOSIS: 1. Right hip fracture from same level fall requiring a right hemiarthroplasty performed by Dr. Jose Avila admitted to Swing Bed for continued reconditioning and strengthening. 2. Diabetes mellitus, type 2, fairly well controlled. 3. Renal insufficiency, improved with IV fluids prior to admission to Swing Bed. 4. Myelodysplastic syndrome. 5. Polymyalgia rheumatica. 6. History of myocardial infarction. 7. Chronic leukocytosis since 2003 but showing a normal white count on admission to Swing Bed. HISTORY OF PRESENT ILLNESS: Mr. Waters is a 76-year-old male patient who was taking a shower on Sunday morning to get ready to go to [facility]. He slipped and fell in the shower, but was able to get up at that time. As he stepped out of the shower, he slipped and fell again, but was able to get back into his bedroom. He decided to go to bed and he was in bed for several hours. Later that afternoon, his had a difficult time getting him out of bed. In fact, he had to scoot on chairs to get into the bed. Later that evening, she actually helped him to urinate and as he got up on the side of the bed, he slid down onto the floor. She could not get him up, so EMS was called and he was brought to the hospital. In the hospital, Emergency Room physician did a workup and he had a lower extremity CT scan per radiologic interpretation showed a mildly comminuted and impacted subcapital fracture of the right hip with sclerosis of the margins of the fracture concerning for subacute nature rather than acute. He also hit the right side of his face and his head CT per radiologic interpretation showed no acute intracranial abnormality with atrophy and microvascular ischemic changes. He was admitted to the hospital for surgical consultation. Dr. Avila saw the patient in surgical consultation on and the patient was diagnosed with a femoral neck fracture. He was taken to surgery on 05/15/17 and had a right hemiarthroplasty completed on the right femoral neck fracture. He was seen in the immediate postoperative state and followed through his physical therapy efforts. On date of discharge and admission to Swing Bed, it was felt that he had progressed minimally and was in need for additional rehabilitation and reconditioning to ensure he was safe once discharged home. LABORATORY: On Swing Bed, white count was 9.3, hemoglobin 9.7, hematocrit 28.9 , platelet count 237,000. Chemistries on admission to Swing Bed showed normal electrolytes, BUN 21, creatinine 1.09. Blood sugars while on Swing Bed were fairly stable, ranging from 83 up to maximum of 396. Calcium 8.2. MICROBIOLOGY: No studies completed. RADIOLOGY: No studies completed. HOSPITAL COURSE: Mr. Waters was admitted to Swing Bed on 05/18/17 as noted. He progressed well through his physical therapy efforts and on date of discharge was felt clinically well enough to be continued in the outpatient setting. PLAN: Mr. Waters was discharged on 05/25/17 to have close clinical followup with Dr. Avila as scheduled. He was to resume his home medications as prior to hospitalization and while on Swing Bed. He was to continue with physical therapy with [facility]. He was to return to the hospital should he have any concerning symptoms. DISCHARGE PRESCRIPTIONS: 1. [place] 5/325, written by Dr. Avila. 2. Xarelto 10 mg for an additional 25 days. No other new prescriptions were provided. DIET AT DISCHARGE: Diabetic as tolerated. ACTIVITY: As per physical therapy. CONDITION AT DISCHARGE: Stable and improved. #[id number] [facility]
== END 2017-05-25 13:00 | disposition home health service (06) | DRG 559 ==
LOC: MS 10:25
PROVIDERS: ADMIT Nurse Practitioner Family; ATTEND Nurse Practitioner Family
DX: S72.011D Unspecified intracapsular fracture of right femur, subsequent encounter for closed fracture with routine healing (principal); D61.811 Other drug-induced pancytopenia; N28.9 Disorder of kidney and ureter, unspecified; D46.9 Myelodysplastic syndrome, unspecified; M35.3 Polymyalgia rheumatica; I25.2 Old myocardial infarction; I25.10 Atherosclerotic heart disease of native coronary artery without angina pectoris; E11.319 Type 2 diabetes mellitus with unspecified diabetic retinopathy without macular edema; F17.210 Nicotine dependence, cigarettes, uncomplicated; Z95.5 Presence of coronary angioplasty implant and graft; Z98.1 Arthrodesis status; Z88.8 Allergy status to other drugs, medicaments and biological substances

== ENCOUNTER → 2017-09-11 | Outpatient (CLI) | payer MEDICARE | END | disposition home or self-care (01) | LOC: GMAL 10:47 | PROVIDERS: ATTEND Family Medicine | DX: D51.3 Other dietary vitamin B12 deficiency anemia (principal); E55.9 Vitamin D deficiency, unspecified ==

== ENCOUNTER 2017-12-24 05:32 | Day surgery (SDC) | payer MEDICARE ==
[2017-12-24] MEDS ORDERED: LIDOCAINE 1% PF 2 ML AMP INJ ONE (05:33)
[2017-12-24] MEDS ORDERED: TROP 1%/CYCLOPEN 1%/PHENYL 2% DROPS ONE (06:07)
[2017-12-24] MEDS: TOBRAMYCIN SULF 0.3 % OPHT SOL 1 DROP LEFT_EYE ONE ×2 (09:09→09:50)
[2017-12-24] MEDS: PROPARACAINE 0.5% OPHTH SOL 15 ML BTTL ONE ×2 (09:09→09:32)
[2017-12-24] MEDS ORDERED: MIDAZOLAM INJ 2 MG/2 ML VIAL ONE (09:28)
[2017-12-24] MEDS ORDERED: DEXAMETHASONE 0.1% OPHTH SOL 1 DROP LEFT_EYE ONE ×2 (09:50→10:04)
[2017-12-24] MEDS ORDERED: BRIMONIDINE 0.2% OPHTH DROPS LEFT_EYE ONE ×2 (09:51→10:04)
[2017-12-24 12:06] VITALS: BP 131/72; TEMP 96.4; O2SAT 96
== END 2017-12-24 10:50 | disposition home or self-care (01) ==
LOC: AMB 05:32
PROVIDERS: ATTEND Ophthalmology
DX: H25.12 Age-related nuclear cataract, left eye (principal); I25.10 Atherosclerotic heart disease of native coronary artery without angina pectoris; E11.36 Type 2 diabetes mellitus with diabetic cataract; K21.9 Gastro-esophageal reflux disease without esophagitis; G20 Parkinson's disease; F17.210 Nicotine dependence, cigarettes, uncomplicated; Z88.8 Allergy status to other drugs, medicaments and biological substances; Z79.02 Long term (current) use of antithrombotics/antiplatelets; Z79.4 Long term (current) use of insulin; Z79.899 Other long term (current) drug therapy
CPT/HCPCS: 00142; 36416; 66984; 82948; J2250

== ENCOUNTER 2018-01-07 05:21 | Day surgery (SDC) | payer MEDICARE ==
[2018-01-07] MEDS ORDERED: PROPARACAINE 0.5% OPHTH SOL 15 ML BTTL ONE (05:53)
[2018-01-07] MEDS ORDERED: TROP 1%/CYCLOPEN 1%/PHENYL 2% DROPS ONE (05:53)
[2018-01-07] MEDS ORDERED: MIDAZOLAM INJ 2 MG/2 ML VIAL ONE (10:19)
[2018-01-07] MEDS ORDERED: TOBRAMYCIN SULF 0.3 % OPHT SOL 1 DROP RIGHT_EYE ONE ×2 (10:33→10:45)
[2018-01-07] MEDS ORDERED: DEXAMETHASONE 0.1% OPHTH SOL 1 DROP RIGHT_EYE ONE ×2 (10:33→10:45)
[2018-01-07] MEDS ORDERED: LIDOCAINE 1% PF 2 ML AMP INJ ONE (10:33)
[2018-01-07] MEDS ORDERED: BRIMONIDINE 0.2% OPHTH DROPS RIGHT_EYE ONE ×2 (10:34→10:45)
== END 2018-01-07 11:20 | disposition home or self-care (01) ==
LOC: AMB 05:21
PROVIDERS: ATTEND Ophthalmology
DX: H25.11 Age-related nuclear cataract, right eye (principal); I10 Essential (primary) hypertension; I25.10 Atherosclerotic heart disease of native coronary artery without angina pectoris; M06.9 Rheumatoid arthritis, unspecified; E11.36 Type 2 diabetes mellitus with diabetic cataract; F17.210 Nicotine dependence, cigarettes, uncomplicated; G47.30 Sleep apnea, unspecified; Z88.8 Allergy status to other drugs, medicaments and biological substances; Z95.5 Presence of coronary angioplasty implant and graft; Z79.4 Long term (current) use of insulin
CPT/HCPCS: 00142; 66984; J2250

== ENCOUNTER → 2018-05-31 | Outpatient (CLI) | payer MEDICARE ==
--- NOTE | 2018-05-31 10:52 | US ---
Exam: Bilateral lower extremity arterial Doppler sonogram CLINICAL HISTORY: Leg pain, patient is diabetic TECHNIQUE: Doppler sonographic evaluation of the bilateral lower extremities was performed. FINDINGS: Right Submitted sonographic images reveal no velocity monophasic flow from mid superficial femoral artery distally. Calcified plaque in the common femoral and superficial femoral arteries. Calcified plaque in the arteries below the knee. The following peak systolic flow flow velocity measurements were obtained: Common femoral artery velocity equals 88 centimeters per second , triphasic. Superficial femoral artery velocity equals 22-35 centimeters per second , triphasic proximally and monophasic in the mid to distal portions. Popliteal artery velocity equals 18 centimeters per second , monophasic. Peroneal artery velocity equals 39 centimeters per second , monophasic. Posterior tibial artery velocity equals 20 centimeters per second , monophasic. Dorsalis pedis artery velocity equals 6.8 centimeters per second , monophasic. Left Submitted sonographic images reveal calcified plaque in the common femoral and superficial femoral arteries. No flow is seen in the mid and distal left superficial femoral artery suggesting occlusion. Increased flow in the left profundofemoral artery. Positive flow in the left popliteal artery and in the arteries below the left knee. The following peak systolic flow flow velocity measurements were obtained: Common femoral artery velocity equals 60 centimeters per second , triphasic. Profunda femoral artery velocity equals 60 centimeters per second , triphasic. Superficial femoral artery is occluded. Popliteal artery velocity equals 32 centimeters per second , monophasic. Peroneal artery velocity equals 25 centimeters per second , monophasic. Posterior tibial artery velocity equals 17 centimeters per second , monophasic. Dorsalis pedis artery velocity equals 7.5 centimeters per second , monophasic. 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 Low velocity monophasic flow in the lower extremities as described. Electronically signed by: Dewayne Bowers MD 05/31/2018 10:50 AM CDT
== END ==
LOC: US 08:06
PROVIDERS: ATTEND Family Medicine
DX: I70.202 Unspecified atherosclerosis of native arteries of extremities, left leg (principal); M79.605 Pain in left leg; M79.604 Pain in right leg

== ENCOUNTER → 2018-08-06 | Outpatient (CLI) | payer MEDICARE ==
--- NOTE | 2018-08-06 13:15 | CT ---
EXAM DESCRIPTION: Abdoment/Pelvis w/o Contrast: Computed Tomography. CLINICAL HISTORY: 77 years Male N18.4 COMPARISON: CTA abdomen and lower extremities 06/09/2016. TECHNIQUE: Spiral-axial scans 2.5 x 2.5 mm intervals through the abdomen and pelvis without oral or IV contrast. Coronal and sagittal 2.0 mm reconstructions. Total Exam DLP: 503.18 mGy-cm. This exam was performed according to our departmental CT dose-optimization program which includes automated exposure control, adjustment of the mA and/or kV according to patient size and/or use of iterative reconstruction technique; to reduce radiation dose to as low as reasonably achievable (ALARA). FINDINGS: Lung bases and pleura: Minimal posterior dependent atelectasis bilaterally and bibasilar pleural thickening with no adjacent rib deformities. Right coronary artery stents and calcifications. Liver, stomach, spleen, and adrenal glands: Negative. Pancreas, Gallbladder, and Ducts: Gallbladder visualized. Duct unremarkable. Pancreas negative. Kidneys and Ureters: Bilateral renal cortical atrophy. No significant atherosclerotic changes in the right renal artery or the origin of the aorta with 2.2 mm stone in the upper collecting system and 2.1 mm stone in the lower collecting system with no hydronephrosis. Minimal calcification of the ostia of the single left renal artery. 3 radiodense stones in the upper collecting system ranging from 2 to 5 mm in diameter with other smaller stones. 3 mm radiodense stone in the mid collecting system and at least 3 radiodense stones 3 mm diameter or less in the inferior collecting system. No hydronephrosis. Bilateral ureters are negative. No perinephric fluid. Mesentery: No free air or free fluid, no stranding or fascial thickening. Aorta: Moderate atherosclerotic calcification and intimal wall thickening more prevalent from the proximal aorta to the bifurcation with narrowing of the lumen above the bifurcation. Widening of the aorta at the L2-3 disc space level measuring 2.6 x 2.3 cm. Proximal abdominal aorta is 3.0 x 2.9 cm. Small Bowel: Negative. Terminal Ileum/Cecum: Unremarkable. Normal caliber of the appendix. Normal density of the surrounding fat. Colon: Diffuse fecal material from the proximal colon to the rectosigmoid with no significant distention. No complications. Pelvic Organs: Scattered artifact from right femoral head prosthesis. Prostate gland abutting the urinary bladder. No free fluid. Spine and Bony Pelvis: Minimal compression deformities central and anterior T11 vertebral body with minimal retropulsion of the inferior endplate. Spondylosis and other thoracic vertebra. Transitional sacralized L5 vertebra with asymmetric articulation of the transverse processes with the sacrum and iliac bone. Rudimentary L5-S1 disc with no bulging. L4-5 disc bulging with significant narrowing of the canal and bilateral foramina. Abdominal Wall/Back Soft Tissues: Bilateral fatty inguinal hernias not containing bowel with no edema. Diastases of the umbilicus not containing bowel. Stable since the prior study. IMPRESSION: 1. Bilateral renal cortical atrophy. Bilateral radiodense stones more in the left kidney with upper pole stones potential to cause urinary tract obstruction due to size and position. No hydronephrosis or hydroureter or stones in the ureters bilaterally. 2. Moderate atherosclerotic changes in the abdominal aorta more severe from the mid to the distal segments with distal narrowing.. Mid aorta 2.6 x 2.3 cm, but proximal aorta 3.0 x 2.9 cm, consistent with ectasia. No aortic imaging follow-up is recommended according to [facility] Best Practice recommendations. Please see below*. 3. 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 Asymmetric articulations bilaterally with the sacrum and iliac bones. Stable since the prior study. This can cause abnormal biomechanics and be a source of low back pain. 4. Minimal mid and anterior compression deformity of the T11 vertebral body of unknown age. This segment was not well seen on the prior CT scan. *AAA Size: Follow-up Recommendation (1): 2.6 - 2.9 cm Every 5 years (2) 3.0 - 3.4 cm Every 3 years 3.5 - 3.9 cm Every 12 months 4.0 - 4.4 cm Every 12 months, vasc consult rec 4.5 - 5.4 cm Every 6 months, vasc consult rec >=5.5 cm Referral to vascular surgeon recommended (1)Based upon the Society for Vascular Surgery Guidelines: J Vasc Surgery 2009 May; 50(4 Supplemental):S2-49 (2)For aortas of max kulwinder of 2.6-2.9 cm that meet criteria for AAA (>= 1.5 x proximal normal segment) Electronically signed by: Jose Guadalupe Alves MD 08/06/2018 1:14 PM [facility]
== END ==
LOC: CT 08:54
PROVIDERS: ATTEND Internal Medicine Nephrology
DX: N18.4 Chronic kidney disease, stage 4 (severe) (principal); N26.1 Atrophy of kidney (terminal); I70.0 Atherosclerosis of aorta; M43.8X4 Other specified deforming dorsopathies, thoracic region

== ENCOUNTER 2018-09-30 11:03 | Emergency (ER) | payer MEDICARE ==
[2018-09-30] MEDS ORDERED: SODIUM CHLORIDE 0.9% 1000ML 1,000 ML ONE (11:05)
[2018-09-30] MEDS ORDERED: DEXTROSE 50% 25 GM/50 ML SYG IV ONE (11:05)
--- NOTE | 2018-09-30 11:13 | ED.PDOC ---
History of Present Illness - General Time Seen by Provider: 09/30/18 11:07 Source: patient Exam Limitations: no limitations - History of Present Illness Initial Comments: Patient presents with his who says he has had convulsions intermittently for 3 days. They can be any body part and occur quickly with resolution in seconds. He does not lose consciousness during these and remembers them completely. EMS reports a blood sugar of 35 and he received an amp of D50 x one. Upon arrival his fsbg is wnl. Patient is alert. He says that he has had TIAs before but cannot offer any specific information about them. 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 Home Medications: Ambulatory Orders Atenolol [Tenormin] 25 mg PO SUWE 12/01/16 Prednisone 5 mg PO BID #0 12/04/16 Carbidopa-Levodopa [Carbidopa/Levodopa 10-100 mg] 1 tab PO BID 09/30/18 Clopidogrel Bisulfate 75 mg PO DAILY 09/30/18 Cyanocobalamin [B12] 1,000 mcg PO DAILY 09/30/18 Duloxetine HCl [Cymbalta] 60 mg PO BEDTIME 09/30/18 Gabapentin 300 mg PO DAILY 09/30/18 HYDROcodone 10MG/APAP 325MG [[place] 10/325] 1 tab PO DAILY 09/30/18 Insulin Degludec [Tresiba Flextouch] 40 unit SC BEDTIME 09/30/18 Lisinopril 10 mg PO DAILY 09/30/18 Rivastigmine 9.5MG/24Hr Patch [Exelon 9.5mg/24hr Patch] 1 ea TD BEDTIME 09/30/18 Review of Systems - Review of Systems Constitutional: States: no symptoms reported EENTM: States: no symptoms reported Respiratory: States: no symptoms reported Cardiology: States: no symptoms reported Gastrointestinal/Abdominal: States: no symptoms reported Genitourinary: States: no symptoms reported Musculoskeletal: States: no symptoms reported Skin: States: no symptoms reported Neurological: States: see HPI Endocrine: States: see HPI Hematologic/Lymphatic: States: no symptoms reported Past Medical History (General) - Patient Medical History Hx Seizures: No Hx Stroke: No Hx Dementia: No Hx Asthma: No Hx of COPD: No Hx Cardiac Disorders: Yes - CAD Hx Congestive Heart Failure: No Hx Pacemaker: No Hx Hypertension: No Hx Thyroid Disease: No Hx Diabetes: Yes Hx Gastroesophageal Reflux: No Hx Renal Disease: No Hx Cancer: No Hx of HIV: No Hx Hepatitis C: No Hx MRSA: No - Vaccination History Hx Tetanus, Diphtheria Vaccination: Yes Hx Influenza Vaccination: Yes Hx Pneumococcal Vaccination: Yes - Social History Hx Tobacco Use: Yes Hx Chewing Tobacco Use: No Hx Alcohol Use: Yes - Admits to drinking Hx Substance Use: No Hx Substance Use Treatment: No Hx Depression: No Hx Physical Abuse: No Hx Emotional Abuse: No Hx Suspected Abuse: No Family Medical History - Family History Mother Family History: Unknown Living Status: Hx Family Asthma: No Hx Family Congestive Heart Failure: No Hx Family Hypertension: No Hx Family Stroke: No Hx Cardiac Disease: No Hx Family Diabetes: No Hx Family Cancer: Yes - brother Hx Family;Other: Rheumatoid arthritis-sister;mom -dementia Physical Exam - Physical Exam General Appearance: Alert, Other - confused speech intermittently Eye Exam: bilateral normal Ears, Nose, Throat: normal ENT inspection Neck: non-tender, full range of motion, supple Respiratory: lungs clear, normal breath sounds Cardiovascular/Chest: normal peripheral pulses, regular rate, rhythm, no edema Gastrointestinal/Abdominal: normal bowel sounds, non tender, soft Back Exam: no CVA tenderness Extremity: normal range of motion, non-tender, normal inspection 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, no motor/sensory deficits, alert, normal mood/affect, oriented x 3, other - intermittent spasms of the extremities, no certain order, each spasm lasts less than one second and each series of spasm lasts less than 10 seconds Skin Exam: normal color Lymphatic: no adenopathy Progress - Progress Progress: 09/30/18 14:41 Laboratory Tests 09/30/18 09/30/18 09/30/18 11:13 11:13 11:13 WBC 11.9 H RBC 4.71 Hgb 13.4 L Hct 42.2 MCV 89.8 MCH 28.4 MCHC 31.8 L RDW 17.3 H Plt Count 209 MPV 8.2 Absolute Neuts (auto) 7.60 H Absolute Lymphs (auto) 3.30 Absolute Monos (auto) 0.70 Absolute Eos (auto) 0.10 Absolute Basos (auto) 0.10 Neutrophils % 64.1 Lymphocytes % 27.9 Monocytes % 6.2 Eosinophils % 1.2 Basophils % 0.6 Sodium 145 Potassium 3.9 Chloride 109 Carbon Dioxide 27 Anion Gap 12.9 BUN 26 H Creatinine 1.53 H BUN/Creatinine Ratio 17.0 POC Glucose Random Glucose 44 L Serum Osmolality 290.4 Calcium 8.6 Total Bilirubin 0.5 AST 15 ALT < 8 L Alkaline Phosphatase 69 Serum Total Protein 6.6 Albumin 3.4 Globulin 3.2 Albumin/Globulin Ratio 1.1 Lipase 41 09/30/18 09/30/18 09/30/18 11:20 11:30 13:41 WBC RBC Hgb Hct MCV MCH MCHC RDW Plt Count MPV Absolute Neuts (auto) Absolute Lymphs (auto) Absolute Monos (auto) Absolute Eos (auto) Absolute Basos (auto) Neutrophils % Lymphocytes % Monocytes % Eosinophils % Basophils % Sodium Potassium Chloride Carbon Dioxide Anion Gap BUN Creatinine BUN/Creatinine Ratio POC Glucose 97 107 H 89 Random Glucose Serum Osmolality Calcium Total Bilirubin AST ALT Alkaline Phosphatase Serum Total Protein Albumin Globulin Albumin/Globulin Ratio Lipase CT head negative. Patient was given D5 NS at 150/hr and transferred to [facility]. I am concerned that the spasms/convulsions/confusion may be preventing the patient from managing his IDDM and also making him even more of a fall risk than he already is. He is on Plavix for past TIAs so that makes falling an even bigger concern. His neurologist, Dr. Teague, is in [place] and can be consulted with for his inpatient stay there. The plan was discussed with the patient and his who both voiced understanding and agreement with the plan. Departure - Departure Clinical Impression: Hypoglycemia, Convulsions Disposition: Transfer to Hospital Condition: Fair Diet: diabetic diet Activity: as per physical therapy Referrals: Regis Page III, MD [Primary Care Provider] - 1-2 Weeks Home Medications: Ambulatory Orders Atenolol [Tenormin] 25 mg PO SUWE 12/01/16 Prednisone 5 mg PO BID #0 12/04/16 Carbidopa-Levodopa [Carbidopa/Levodopa 10-100 mg] 1 tab PO BID 09/30/18 Clopidogrel Bisulfate 75 mg PO DAILY 09/30/18 Cyanocobalamin [B12] 1,000 mcg PO DAILY 09/30/18 Duloxetine HCl [Cymbalta] 60 mg PO BEDTIME 09/30/18 Gabapentin 300 mg PO DAILY 09/30/18 HYDROcodone 10MG/APAP 325MG [[place] 10] 1 tab PO DAILY 09/30/18 Insulin Degludec [Tresiba Flextouch] 40 unit SC BEDTIME 09/30/18 Lisinopril 10 mg PO DAILY 09/30/18 Rivastigmine 9.5MG/24Hr Patch [Exelon 9.5mg/24hr Patch] 1 ea TD BEDTIME 09/30/18
--- NOTE | 2018-09-30 12:19 | CT ---
EXAM DESCRIPTION: Cervical Spine CLINICAL HISTORY: convulsions COMPARISON: None Available. TECHNIQUE: Cervical CT is performed with thin-section axial imaging. MPRs are created and reviewed as well. FINDINGS: The craniocervical junction is intact. The odontoid process is in good alignment with the lateral masses of C2. Reversal of the normal lordotic curvature of the cervical spine is noted. The vertebral body heights are well-maintained with no acute compression deformity. There is multilevel degenerative disc disease and uncovertebral joint arthropathy, worse at C5-C6 and C6-C7 levels. There is grade 1 anterolisthesis of C4 over C5. The visualized prevertebral and paravertebral soft tissues appear normal. IMPRESSION: No acute traumatic abnormality is noted in the cervical spine. Multilevel degenerative disc disease and uncovertebral joint arthropathy is identified. This exam was performed according to our departmental dose-optimization program, which includes automated exposure control, adjustment of the mA and/or kV according to patient size and/or use of iterative reconstruction technique. Electronically signed by: Adeola Prakash MD 09/30/2018 12:17 PM [facility]
--- NOTE | 2018-09-30 13:28 | CT ---
EXAM DESCRIPTION: CT head without contrast CLINICAL HISTORY: Convulsions. Seizure COMPARISON: 05/13/2017 TECHNIQUE: Noncontrast spiral CT of the brain. This exam was performed according to our departmental dose-optimization program, which includes automated exposure control, adjustment of the mA and/or kV according to patient size and/or use of iterative reconstruction technique FINDINGS: Moderate to severe white matter disease bilateral cerebral hemispheres with patchy and confluent decreased density, nonspecific likely remote microvascular ischemia. Similar appearance on previous study No intracranial hemorrhage, evidence of acute cortical infarction, or mass lesion Cerebral volume loss with prominence of cortical sulci and ventricular system No calvarial or skull base fracture or other bony abnormality. No paranasal sinus or mastoid fluid IMPRESSION: Negative acute noncontrast head CT. Moderate/severe white matter disease similar to previous study nonspecific likely remote microvascular ischemia. CT is insensitive for early evaluation of acute stroke. If there is clinical concern for acute ischemia, an MRI may be considered. Electronically signed by: Nathanael Melvin MD 09/30/2018 1:26 PM [facility]
[2018-09-30 15:01] VITALS: BP 156/73; O2SAT 94
[2018-09-30 16:05] VITALS: TEMP 97
== END 2018-09-30 15:30 | disposition short-term general hospital (02) ==
LOC: ER 11:03
DX: R56.9 Unspecified convulsions (principal); E11.649 Type 2 diabetes mellitus with hypoglycemia without coma; I25.10 Atherosclerotic heart disease of native coronary artery without angina pectoris; Z79.4 Long term (current) use of insulin; Z79.899 Other long term (current) drug therapy; Z88.8 Allergy status to other drugs, medicaments and biological substances; Z87.891 Personal history of nicotine dependence
CPT/HCPCS: 36416; 70450; 72125; 80053; 82948; 83690; 85025; J7030; J7799

== ENCOUNTER → 2018-12-20 | Outpatient (CLI) | payer BC ==
--- NOTE | 2018-12-21 09:37 | US ---
EXAM DESCRIPTION: Renal (accession [id number]), Renal Arteries (accession [id number]): Ultrasound. CLINICAL HISTORY: Chronic kidney disease, unspecified COMPARISON: Two-dimensional ultrasound evaluation of the bilateral kidneys on the same visit. TECHNIQUE: Transcutaneous scanning: Grayscale mode. Doppler systolic and diastolic measurements of the abdominal aorta, renal arteries, intra renal arteries, and renal veins. FINDINGS: The right kidney measures 9.1 x 5.4 x 4.8 cm; cortical thickness 11 mm with increased echogenicity. No hydronephrosis or large calcifications. Minimally lobulated contour of the kidney with no perinephric fluid. Proximal ureter not visualized. The left kidney measures 8.9 x 5.1 x 4.8 cm; cortical thickness 10 mm with increased echogenicity. 11 x 11 mm cortical cyst. No hydronephrosis or large calcifications. Minimally lobulated contour of the kidney with no perinephric fluid. Proximal ureter not visualized. Distal ureters not visualized bilaterally. Urinary bladder was not visualized. Vessel diameter (cm): Aorta-Proximal: 1.1 cm PSV (cm/sec): Aorta: 55 Right renal artery: 128 Left renal artery: 60 EDV (cm/sec): Right renal artery: 50 Left renal artery: 16 Renal veins: Unremarkable IVC: Unremarkable Intrarenal RI's: Proximal Right: 0.61 Left: 0.73. Middle Right: 0.69 Left: 0.79. Distal Right: 0.73 Left: 0.69 Renal Aortic Ratio: Right RAR = RRA PSV/Aortic PSV = 128 /55= 2.3. Left RAR = LRA PSV/Aortic PSV = 60/55 = 1.1. End Diastolic Ratio: Right EDR = RRA EDV/RRA PSV = 50/128 = 0.39. Left EDR = LRA EDV/LRA PSV = 16/60= 0.27. Other: There are sclerotic changes in the aorta.. IMPRESSION: 1. Small right kidney with thin cortex with lobulated capsule and increased echogenicity consistent with chronic renal disease. Similar appearance of the left kidney. Also 11 mm cyst in the left kidney. 2. Renal aortic ratios indicate no significant renal artery stenosis (less than 50% diameter/less than 3.5). 3. 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
== END ==
LOC: US 08:30
PROVIDERS: ATTEND Family Medicine
DX: N18.9 Chronic kidney disease, unspecified (principal)

== ENCOUNTER → 2019-03-07 | Outpatient (CLI) | payer BC, MEDICARE ==
--- NOTE | 2019-03-07 09:59 | RAD ---
EXAM DESCRIPTION: Pelvis CLINICAL HISTORY: M25.551 right hip pain COMPARISON: May 15, 2017 IMPRESSION: Single AP view of the pelvis shows mild diffuse osteopenia the osseous structures without acute fracture, focal bone destruction, or joint dislocation. Right hip arthroplasty seen in place without complicating features. Vascular stents are seen in the expected location of the right common iliac and left proximal superficial femoral arteries. Electronically signed by: Christian Walker MD 03/07/2019 9:56 AM CDT
--- NOTE | 2019-03-07 10:00 | RAD ---
EXAM DESCRIPTION: Hip,Right 2 Views CLINICAL HISTORY: M25.551 right hip pain COMPARISON: May 15, 2017 IMPRESSION: 2 views of the right hip show hip arthroplasty in good positioning without fracture or dislocation. Cement fixation of the femoral component is seen without hardware loosening or failure. Electronically signed by: Christian Walker MD 03/07/2019 9:58 AM CDT
== END ==
LOC: RAD 08:08
PROVIDERS: ATTEND Orthopaedic Surgery
DX: M25.551 Pain in right hip (principal); M85.88 Other specified disorders of bone density and structure, other site; Z96.641 Presence of right artificial hip joint; Z95.828 Presence of other vascular implants and grafts

== ENCOUNTER → 2019-03-18 | Outpatient (CLI) | payer MEDICARE | LOC: GMAL 11:23 | PROVIDERS: ATTEND Family Medicine | DX: M25.559 Pain in unspecified hip (principal); Z79.899 Other long term (current) drug therapy ==

== ENCOUNTER → 2019-05-23 | Outpatient (CLI) | payer MEDICARE | LOC: GMAL 11:18 | PROVIDERS: ATTEND Family Medicine | DX: Z79.899 Other long term (current) drug therapy (principal); M35.3 Polymyalgia rheumatica ==

== ENCOUNTER → 2019-08-22 | Outpatient (CLI) | payer MEDICARE | LOC: GMAL 13:14 | PROVIDERS: ATTEND Family Medicine | DX: M35.3 Polymyalgia rheumatica (principal); Z79.899 Other long term (current) drug therapy ==

== ENCOUNTER → 2019-09-12 | Outpatient (CLI) | payer MEDICARE ==
--- NOTE | 2019-09-12 15:34 | RAD ---
EXAM DESCRIPTION: Forearm,Right CLINICAL HISTORY: 78 years Male, PAIN IN RIGHT ARM 2 VIEW COMPARISON: None. TECHNIQUE: 2 views of the right forearm. FINDINGS: Mild diffuse osteopenia of the visualized bones noted. No acute fracture or dislocation. The proximal and distal radioulnar joint are intact. Mild radiocarpal degenerative changes noted. No evidence of elbow joint effusion. The overlying soft tissues appear grossly unremarkable. IMPRESSION: 1. No acute fracture or dislocation Electronically signed by: Ishaan Gooden MD 09/12/2019 3:33 PM [facility]
== END ==
LOC: RAD 08:37
PROVIDERS: ATTEND Orthopaedic Surgery
DX: M79.601 Pain in right arm (principal)

== ENCOUNTER 2019-10-28 05:38 | Day surgery (SDC) | payer MEDICARE ==
[2019-10-28] MEDS ORDERED: ceFAZolin SODIUM 1 GM VIAL ONE ×2 (05:48→06:16)
[2019-10-28] MEDS ORDERED: SODIUM CHL 0.9% 100ML MINI-BAG 100 ML IVPB ONE (05:48)
[2019-10-28] MEDS ORDERED: LACTATED RINGERS 1,000 ML ONE (05:48)
[2019-10-28] MEDS ORDERED: LIDOCAINE 1% 10 ML VIAL INJ ONE ×3 (06:16→10:00)
[2019-10-28] MEDS ORDERED: BUPIVACAINE 0.25% INJ 30 ML VIAL INJ ONE ×2 (06:16→07:15)
[2019-10-28] MEDS ORDERED: VANCOMYCIN HCL INJ 1,000 MG VIAL IVPB ONE ×2 (06:16→07:15)
[2019-10-28] MEDS ORDERED: DEXTROSE 5% 100 ML BAG IVPB ONE (06:55)
[2019-10-28] MEDS ORDERED: DEXTROSE 5% 100ML 100 ML IVPB ONE ×2 (06:57→08:16)
[2019-10-28] MEDS ORDERED: MIDAZOLAM INJ 2 MG/2 ML VIAL ONE (07:13)
[2019-10-28] MEDS ORDERED: ceFAZolin SODIUM 1 GM VIAL IRRIG ONE (07:15)
[2019-10-28 09:12] VITALS: BP 139/68; TEMP 96.8; O2SAT 99
[2019-10-28] MEDS ORDERED: DEXAMETHASONE INJ 10 MG/ML VIAL IV ONE (10:00)
[2019-10-28] MEDS ORDERED: PROPOFOL 200 MG/20 ML VIAL IV ONE (10:00)
--- NOTE | 2019-10-29 10:10 | OP ---
DATE OF PROCEDURE: 10/28/19 PREOPERATIVE DIAGNOSIS: 1. Right carpal tunnel syndrome. POSTOPERATIVE DIAGNOSIS: 1. Right carpal tunnel syndrome. PROCEDURE: 1. Carpal tunnel release. SURGEON: Jose Avila MD. REGIONAL MARKETING DIRECTOR: Jose Guadalupe Palomo CST, SA-C. ANESTHESIA: Local with sedation. COMPLICATIONS: None. FINDINGS: 1. Advanced thenar atrophy. 2. Thickening of the transverse carpal ligament. INDICATION: Mr. Waters has a history of both EMG and clinical diagnosis of carpal tunnel syndrome. He has advanced symptoms and therefore we discussed his options. After discussing the risks, benefits and alternatives to operative therapy, the patient has given informed consent for carpal tunnel release. PROCEDURE: The patient was brought to the Operating Room and placed in the supine position. Sedation was administered and local anesthetic was injected into the operative area under sterile conditions. After the injection of anesthetic, the arm was sterilely prepped and draped. A longitudinal incision was made directly overlying the transverse carpal ligament and blunt dissection was carried down to the ligament. The transverse carpal ligament was sharply transected along its length and a [place] elevator was used to ensure complete release of the ligament. Once release had been confirmed, the wound was thoroughly irrigated and the wound was closed with Nylon suture. A sterile dressing was placed and the patient was taken to the Day Surgery Unit. POSTOPERATIVE PLAN: The patient has been encouraged to do range of motion of the digits and will followup with us in two days. #[id number] MTDD
== END 2019-10-28 08:57 | disposition home or self-care (01) ==
LOC: AMB 05:38
PROVIDERS: ATTEND Orthopaedic Surgery
DX: G56.01 Carpal tunnel syndrome, right upper limb (principal); I25.10 Atherosclerotic heart disease of native coronary artery without angina pectoris; I10 Essential (primary) hypertension; E11.51 Type 2 diabetes mellitus with diabetic peripheral angiopathy without gangrene
CPT/HCPCS: 01810; 36416; 64721; 80307; 82948; J0690; J1100; J2250; J3370; J3490; J7050; J7060; J7120

== ENCOUNTER → 2019-11-28 | Outpatient (CLI) | payer MEDICARE | LOC: HHH 13:15 | PROVIDERS: ATTEND Internal Medicine Rheumatology | DX: M35.3 Polymyalgia rheumatica (principal); M15.0 Primary generalized (osteo)arthritis; Z79.899 Other long term (current) drug therapy ==

== ENCOUNTER → 2020-01-16 | Outpatient (CLI) | payer MEDICARE | LOC: HHH 12:28 | PROVIDERS: ATTEND Internal Medicine Rheumatology | DX: M35.3 Polymyalgia rheumatica (principal) ==

== ENCOUNTER → 2020-02-10 | Outpatient (CLI) | payer MEDICARE | LOC: HHH 11:25 | PROVIDERS: ATTEND Family Medicine | DX: M35.3 Polymyalgia rheumatica (principal); G20 Parkinson's disease; E11.9 Type 2 diabetes mellitus without complications ==

== ENCOUNTER 2020-03-11 07:32 | Emergency (ER) | payer MEDICARE ==
[2020-03-11] MEDS ORDERED: SODIUM CHLORIDE 0.9% 1000ML 1,000 ML IVS ONE (07:36)
[2020-03-11] MEDS ORDERED: ONDANSETRON INJ 4 MG/2 ML VIAL IV ONE (07:36)
[2020-03-11] MEDS ORDERED: MORPHINE SULFATE INJ 10 MG/ML VIAL IV ONE (07:36)
--- NOTE | 2020-03-11 07:43 | ED.PDOC ---
History of Present Illness - General Time Seen by Provider: 03/11/20 07:34 Source: patient, RN notes reviewed, Vital Signs reviewed, EMS notes reviewed Exam Limitations: no limitations - History of Present Illness Initial Comments: Patient is an 79-year-old male with past medical history of Parkinson's dementia, diabetes, coronary artery disease and peripheral vascular disease on Xarelto who presents to ED for left thigh pain, black stools and high blood sugar. States he awoke at 5 AM today with sharp left thigh pain. He had 1 bowel movement this morning that was black in color. EMS reports that blood sugar initially was 490 and was given 500 cc normal saline bolus in route. Patient states the left thigh pain is constant and denies any recent injury to the area. He denies any swelling, redness or warmth to the left leg or any sensation of cold or numb feet or toes. States he had a stent placed in his left leg several years ago due to peripheral vascular disease. He denies abdominal pain, nausea, vomiting, fever, lightheadedness, chest pain or shortness of breath. 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 Home Medications: Ambulatory Orders Atenolol [Tenormin] 12.5 mg PO DAILY 12/01/16 Carbidopa-Levodopa [Carbidopa/Levodopa 10-100 mg] 1 tab PO BID 09/30/18 Cyanocobalamin [B12] 1,000 mcg PO DAILY 09/30/18 Duloxetine HCl [Cymbalta] 60 mg PO BEDTIME 09/30/18 HYDROcodone 10MG/APAP 325MG [[place] 10/325] 1 tab PO DAILY 09/30/18 Melatonin 1 - 2 tablet PO BEDTIME 10/27/19 Prednisone 5 mg PO BID 10/27/19 Aspirin [Aspirin Adult Low Dose] 81 mg PO DAILY 03/11/20 Celecoxib [Celebrex] 200 mg PO BID 03/11/20 Cholecalciferol [Vitamin D] 1,000 unit PO DAILY 03/11/20 Insulin Degludec [Tresiba] 20 unit SC BEDTIME 03/11/20 Multiple Vitamin [Ocuvite] 1 ea PO DAILY 03/11/20 Rivaroxaban [Xarelto] 2.5 mg PO BID 03/11/20 Rivastigmine [Rivastigmine Transdermal] 4.6 mg TD DAILY 03/11/20 Review of Systems - Review of Systems Constitutional: Denies: chills, fever, weakness EENTM: Denies: blurred vision, nose congestion, throat pain Respiratory: Denies: cough, short of breath Cardiology: Denies: chest pain, edema, palpitations, syncope Gastrointestinal/Abdominal: States: other - dark stool x 1. Denies: abdominal pain, diarrhea, nausea, vomiting Genitourinary: Denies: dysuria, frequency Musculoskeletal: States: other - Left thigh pain. Denies: back pain, neck pain Skin: Denies: lesions, rash Neurological: Denies: headache, paresthesia, weakness Hematologic/Lymphatic: States: easy bruising. Denies: blood clots All other Systems: Reviewed and Negative Past Medical History (General) - Patient Medical History Hx Seizures: No Hx Stroke: No Hx Dementia: No Hx Asthma: No Hx of COPD: No Hx Cardiac Disorders: Yes - CAD Hx Congestive Heart Failure: No Hx Pacemaker: No Hx Hypertension: No Hx Thyroid Disease: No Hx Diabetes: Yes - FSBS 42 INITIAL, RETAKE 83 Hx Gastroesophageal Reflux: No Hx Renal Disease: No Hx Cancer: No Hx of HIV: No Hx Hepatitis C: No Hx MRSA: No - Vaccination History Hx Tetanus, Diphtheria Vaccination: Yes Hx Influenza Vaccination: Yes Hx Pneumococcal Vaccination: Yes - Social History Hx Tobacco Use: Yes Hx Chewing Tobacco Use: No Hx Alcohol Use: Yes - Admits to drinking Hx Substance Use: No Hx Substance Use Treatment: No Hx Depression: No Hx Physical Abuse: No Hx Emotional Abuse: No Hx Suspected Abuse: No Family Medical History - Family History Mother Family History: Unknown Living Status: Hx Family Asthma: No Hx Family Congestive Heart Failure: No Hx Family Hypertension: No Hx Family Stroke: No Hx Cardiac Disease: No Hx Family Diabetes: No Hx Family Cancer: Yes - brother Hx Family;Other: Rheumatoid arthritis-sister;mom -dementia Physical Exam - Physical Exam General Appearance: Alert, Comfortable, No apparent distress Neck: non-tender, full range of motion, supple Respiratory: chest non-tender, lungs clear, normal breath sounds, no respiratory distress, no accessory muscle use Cardiovascular/Chest: other - Normal rhythm, tachycardia. He has palpable bilateral dorsalis pedis pulses that are symmetrical. Peripheral Pulses: dorsalis pedis,right: 1+, dorsalis pedis,left: 1+ Gastrointestinal/Abdominal: non tender, soft, no pulsatile mass Rectal Exam: other - Normal tone. Dark-colored stool in rectal vault. No bright red blood per rectum. Back Exam: no CVA tenderness, no vertebral tenderness Extremity: normal range of motion, other - Diffusely tender to the medial left thigh. There is no edema, erythema, warmth or any skin changes in the area Neurologic: no motor/sensory deficits, alert, normal mood/affect, oriented x 3 Skin Exam: other - Subcutaneous ecchymosis seen to bilateral forearms Progress - Progress Progress: 03/11/20 07:52 Patient presents to ED for left thigh pain, dark-colored stools and hyperglycemia. Initial blood sugar was greater than 400. Will check labs including anion gap and CO2 to evaluate for DKA and treat with IV fluids and possibly IV insulin. Will send stool for guaiac testing and check coags and hemoglobin level. Patient also reporting onset of left thigh pain this morning without injury. He has palpable dorsalis pedis pulse. Doppler performed and has good bilateral dorsalis pedis and posterior tibial pulses. Cap refill in the left foot is less than 2 seconds. There are no cold toes and sensation is symmetrical with the right foot. Will get ultrasound of the left lower extremity to evaluate arterial flow and rule out DVT. 03/11/20 08:43 Labs show a hemoglobin of 7.3 today. His previous on February 09 was 11.3. He takes Xarelto and a baby aspirin daily. Reports one episode of dark black stool this morning, but states he has not been looking at his stools. PPI started. Denies any other bleeding or any vomiting. He was slightly tachycardic initially, but his blood pressure has been stable. We will plan to transfuse 1 unit of packed red blood cells and transfer for further GI evaluation. White blood cell count is elevated at 23,000. He has no fever here and denies any recent fever or illness. 03/11/20 09:11 Patient also found to have acute kidney injury with hyperkalemia. Baseline creatinine is 1.4-1.6 and his creatinine today is 2.45. Potassium is 6.0. Will treat with calcium, insulin and bicarb. We will plan to transfer for higher level of care for GI bleed, acute kidney injury and hyperkalemia. No EKG changes for hyperkalemia. He presented for left thigh pain with no recent trauma and does have leukocytosis of 23,000. Ultrasound and imaging of the left leg are negative, there is concern for new onset leukemia causing his symptoms and elevated white blood cell count in the absence of source of infection. 03/11/20 09:56 D/W Dr. Ruiz, GI at [facility], via transfer line. Accepts pt to floor. Rec admit to Hospitalist. D/W Dr. Anderson, hospitalist, via transfer line and will accept transfer for GI bleed, PREMA and leukocytosis. - Results/Orders Results/Orders: EKG- NSR, rate 91, nml intervals, nonspecific T wave abnormality LLE Venous Doppler EXAM DESCRIPTION: Venous,Lower Extremity LT: ULTRASOUND. CLINICAL HISTORY: r/o DVT COMPARISON: None Available. TECHNIQUE: Ruiz-scale and doppler sonographic evaluation of the deep venous system of the left lower extremity. FINDINGS: Doppler evaluation shows normal color flow and normal phasicity and augmentation of the left common femoral vein, femoral vein, popliteal vein, greater saphenous vein, junction with the CFV. Also normal color flow and normal phasicity and augmentation of the peroneal, and posterior tibial vein. The left lower extremity deep veins were completely compressible; normal occlusion with transducer pressure. Ruiz-scale survey showed no echogenic thrombus within these veins. Left superficial femoral artery graft IMPRESSION: 1. Duplex ultrasound evaluation of the left lower extremity deep venous system showing no evidence of thrombosis. 2. Left superficial femoral artery graft/stent. LLE Arterial Doppler EXAM DESCRIPTION: Extremity,Lower LT Arteries: Ultrasound. CLINICAL HISTORY: h/o arterial stent COMPARISON: Duplex ultrasound evaluation of the deep venous system of the left lower extremity on the same visit. TECHNIQUE: Doppler evaluation of the right lower extremity arterial flow waveforms and velocities. FINDINGS: Arterial waveforms in the left lower extremity are multiphasic left common femoral artery and superficial femoral artery. Monophasic left DPA femoral artery. Reversed flow in the left posterior tibial artery indicating an high-grade stenosis with collateral reversed flow. Complete stenosis in the mid segment of the [employer]. Unusual waveform in the left DPA alternating biphasic and monophasic.. Comments: Complete stenosis in the mid left posterior tibial artery with collateral flow. IMPRESSION: Doppler ultrasound of the bilateral lower extremity arterial system shows no significant stenosis in the left superficial femoral artery stent. Collateral reversed flow in the left posterior tibial artery with high-grade stenosis mid segment.. Left Femur EXAM DESCRIPTION: Femur,Left CLINICAL HISTORY: 79 years Male, left thigh pain COMPARISON: None. FINDINGS: Bones appear osteopenic. Vascular stent in the left groin region. Hemiarthroplasty of the left knee. No fracture or bony destructive lesion. IMPRESSION: Negative for fracture or bony destructive lesion. 03/11/20 07:34 IV Care:Saline Lock per Protoc QSHIFT Sodium Chloride 0.9% (Flush) [Saline Flush Syringe] 10 ml IV PRN PRN 03/11/20 07:45 EKG STAT 03/11/20 08:40 Consents:Blood .PRN 03/11/20 08:41 Transfuse Blood Products .PRN Acetaminophen [Tylenol] 650 mg PO ONCE ONE diphenhydrAMINE HCL [Benadryl] 25 mg IV ONCE ONE 03/11/20 08:50 PACKED CELLS,LR Stat TYPE AND SCREEN Stat 03/11/20 09:00 Sodium Chloride 0.9% 500Ml [NS 500ml] 500 ml IVS .KVO 03/11/20 09:10 Insulin, Reg.(Human) [HumuLIN R] DOSE units IV ONCE ONE Laboratory Results - last 24 hr 03/11/20 03/11/20 03/11/20 07:38 08:25 08:25 WBC 23.0 H* RBC 2.66 L Hgb 7.3 L* Hct 23.6 L MCV 88.6 MCH 27.6 MCHC 31.1 L RDW 20.4 H Plt Count 177 MPV 8.0 Absolute Neuts (auto) Not Reportable Absolute Lymphs (auto) Not Reportable Absolute Monos (auto) Not Reportable Absolute Eos (auto) Not Reportable Neutrophils % Not Reportable Neutrophils % (Manual) 86.0 H Lymphocytes % Not Reportable Lymphocytes % (Manual) 8.0 Monocytes % Not Reportable Monocytes % (Manual) 3.0 Eosinophils % Not Reportable Basophils % Not Reportable Band Neutrophils 3.0 H Hypochromia 1+ Platelet Estimate Normal Anisocytosis 2+ Microcytosis 1+ PT 10.7 INR 1.08 PTT (SP) 20.9 L Sodium Potassium Chloride Carbon Dioxide Anion Gap BUN Creatinine BUN/Creatinine Ratio Random Glucose Serum Osmolality Calcium Total Bilirubin AST ALT Alkaline Phosphatase Serum Total Protein Albumin Globulin Albumin/Globulin Ratio Stool Occult Blood Positive H Patient ABO/Rh Antibody Screen Crossmatch 03/11/20 03/11/20 08:25 08:50 WBC RBC Hgb Hct MCV MCH MCHC RDW Plt Count MPV Absolute Neuts (auto) Absolute Lymphs (auto) Absolute Monos (auto) Absolute Eos (auto) Neutrophils % Neutrophils % (Manual) Lymphocytes % Lymphocytes % (Manual) Monocytes % Monocytes % (Manual) Eosinophils % Basophils % Band Neutrophils Hypochromia Platelet Estimate Anisocytosis Microcytosis PT INR PTT (SP) Sodium 139 Potassium 6.0 H Chloride 111 Carbon Dioxide 17 L Anion Gap 17.0 BUN 130 H* Creatinine 2.45 H BUN/Creatinine Ratio 53.1 H Random Glucose 361 H Serum Osmolality 334.0 H* Calcium 7.8 L Total Bilirubin 0.6 AST 19 ALT 20 Alkaline Phosphatase 95 Serum Total Protein 4.7 L Albumin 2.5 L Globulin 2.2 L Albumin/Globulin Ratio 1.1 Stool Occult Blood Patient ABO/Rh B POSITIVE Antibody Screen Negative Crossmatch See Detail Departure - Departure Clinical Impression: PREMA (acute kidney injury), Hyperkalemia, Left thigh pain GI bleed Qualifiers: GI bleed type/associated pathology: unspecified gastrointestinal hemorrhage type Qualified Code(s): K92.2 - Gastrointestinal hemorrhage, unspecified Anemia Qualifiers: Anemia type: other cause Other causes of anemia: other cause, not classified Qualified Code(s): D64.89 - Other specified anemias Leukocytosis Qualifiers: Leukocytosis type: unspecified Qualified Code(s): D72.829 - Elevated white bloo d cell count, unspecified Time of Disposition: 10:03 Disposition: Transfer to Child Hosp/Cancer Condition: Fair Referrals: Regis Page III, MD [Primary Care Provider] - 1-2 Weeks Home Medications: Ambulatory Orders Atenolol [Tenormin] 12.5 mg PO DAILY 12/01/16 Carbidopa-Levodopa [Carbidopa/Levodopa 10-100 mg] 1 tab PO BID 09/30/18 Cyanocobalamin [B12] 1,000 mcg PO DAILY 09/30/18 Duloxetine HCl [Cymbalta] 60 mg PO BEDTIME 09/30/18 HYDROcodone 10MG/APAP 325MG [[place] 10/325] 1 tab PO DAILY 09/30/18 Melatonin 1 - 2 tablet PO BEDTIME 10/27/19 Prednisone 5 mg PO BID 10/27/19 Aspirin [Aspirin Adult Low Dose] 81 mg PO DAILY 03/11/20 Celecoxib [Celebrex] 200 mg PO BID 03/11/20 Cholecalciferol [Vitamin D] 1,000 unit PO DAILY 03/11/20 Insulin Degludec [Tresiba] 20 unit SC BEDTIME 03/11/20 Multiple Vitamin [Ocuvite] 1 ea PO DAILY 03/11/20 Rivaroxaban [Xarelto] 2.5 mg PO BID 03/11/20 Rivastigmine [Rivastigmine Transdermal] 4.6 mg TD DAILY 03/11/20 Transfer to Outside Facility - Transfer Information Decision to Transfer Date: 03/11/20 Decision to Transfer Time: 09:13 Reason for Transfer: required specialist not available Accepting Provider:: Dr. Anderson Accepting Facility: [facility] - GI, Nephrology
[2020-03-11] MEDS: SODIUM CHLORIDE 0.9% (FLUSH) 10 ML SYG IV PRN ×2 (08:14→09:44)
[2020-03-11] MEDS ORDERED: diphenhydrAMINE HCL 50 MG/ML VIAL IV ONE (08:41)
[2020-03-11] MEDS ORDERED: ACETAMINOPHEN 325 MG TAB PO ONE (08:41)
--- NOTE | 2020-03-11 08:49 | US ---
EXAM DESCRIPTION: Venous,Lower Extremity LT: ULTRASOUND. CLINICAL HISTORY: r/o DVT COMPARISON: None Available. TECHNIQUE: Ruiz-scale and doppler sonographic evaluation of the deep venous system of the left lower extremity. FINDINGS: Doppler evaluation shows normal color flow and normal phasicity and augmentation of the left common femoral vein, femoral vein, popliteal vein, greater saphenous vein, junction with the CFV. Also normal color flow and normal phasicity and augmentation of the peroneal, and posterior tibial vein. The left lower extremity deep veins were completely compressible; normal occlusion with transducer pressure. Ruiz-scale survey showed no echogenic thrombus within these veins. Left superficial femoral artery graft IMPRESSION: 1. Duplex ultrasound evaluation of the left lower extremity deep venous system showing no evidence of thrombosis. 2. Left superficial femoral artery graft/stent. Electronically signed by: Jose Guadalupe Alves MD 03/11/2020 8:47 AM CDT
--- NOTE | 2020-03-11 08:55 | US ---
EXAM DESCRIPTION: Extremity,Lower LT Arteries: Ultrasound. CLINICAL HISTORY: h/o arterial stent COMPARISON: Duplex ultrasound evaluation of the deep venous system of the left lower extremity on the same visit. TECHNIQUE: Doppler evaluation of the right lower extremity arterial flow waveforms and velocities. FINDINGS: Arterial waveforms in the left lower extremity are multiphasic left common femoral artery and superficial femoral artery. Monophasic left DPA femoral artery. Reversed flow in the left posterior tibial artery indicating an high-grade stenosis with collateral reversed flow. Complete stenosis in the mid segment of the [employer]. Unusual waveform in the left DPA alternating biphasic and monophasic.. Comments: Complete stenosis in the mid left posterior tibial artery with collateral flow. IMPRESSION: Doppler ultrasound of the bilateral lower extremity arterial system shows no significant stenosis in the left superficial femoral artery stent. Collateral reversed flow in the left posterior tibial artery with high-grade stenosis mid segment.. Electronically signed by: Jose Guadalupe Alves MD 03/11/2020 8:53 AM CDT
[2020-03-11] MEDS ORDERED: SODIUM CHLORIDE 0.9% 500ML 500 ML IVS SCH (09:00)
[2020-03-11] MEDS ORDERED: CALCIUM GLUCONATE INJ 1 GM/10 ML VIAL IV ONE (09:10)
[2020-03-11] MEDS ORDERED: INSULIN, REG.(HUMAN) 100 U/ML VIAL IV ONE (09:10)
[2020-03-11] MEDS ORDERED: SODIUM BICARBONATE SYRINGE 50 MEQ/50 ML SYG IV ONE (09:10)
--- NOTE | 2020-03-11 09:32 | RAD ---
EXAM DESCRIPTION: Femur,Left CLINICAL HISTORY: 79 years Male, left thigh pain COMPARISON: None. FINDINGS: Bones appear osteopenic. Vascular stent in the left groin region. Hemiarthroplasty of the left knee. No fracture or bony destructive lesion. IMPRESSION: Negative for fracture or bony destructive lesion. Electronically signed by: Dewayne Bowers MD 03/11/2020 9:30 AM CDT
[2020-03-11] MEDS ORDERED: SODIUM CHLORIDE 0.9% 50ML 50 ML ONE (09:52)
[2020-03-11] MEDS ORDERED: PANTOPRAZOLE INJECTION 80 MG in SODIUM CHLORIDE 0.9% 100ML 80 ML IVPB ONE (09:55)
[2020-03-11 12:38] VITALS: BP 171/74; TEMP 97.6; O2SAT 97
== END 2020-03-11 11:35 | disposition short-term general hospital (02) ==
LOC: ER 07:32
DX: N17.9 Acute kidney failure, unspecified (principal); K92.2 Gastrointestinal hemorrhage, unspecified; E87.5 Hyperkalemia; M79.652 Pain in left thigh; R00.0 Tachycardia, unspecified; G20 Parkinson's disease; F02.80 Dementia in other diseases classified elsewhere, unspecified severity, without behavioral disturbance, psychotic disturbance, mood disturbance, and anxiety; I25.10 Atherosclerotic heart disease of native coronary artery without angina pectoris; I73.9 Peripheral vascular disease, unspecified; E11.9 Type 2 diabetes mellitus without complications; Z79.01 Long term (current) use of anticoagulants; Z79.4 Long term (current) use of insulin; Z79.899 Other long term (current) drug therapy; Z87.891 Personal history of nicotine dependence; Z79.82 Long term (current) use of aspirin
CPT/HCPCS: 36415; 73551; 80053; 82270; 85025; 85610; 85730; 86850; 86900; 86901; 86922; 93005; 93926; 93971; A4216; J1200; J2270; J2405; J7030; J7040; J7050; P9016

== ENCOUNTER → 2020-03-26 | Outpatient (CLI) | payer MEDICARE | LOC: HHH 13:23 | PROVIDERS: ATTEND Internal Medicine Rheumatology | DX: Z79.899 Other long term (current) drug therapy (principal); M15.0 Primary generalized (osteo)arthritis; M35.5 Multifocal fibrosclerosis ==

== ENCOUNTER → 2020-06-04 | Outpatient (CLI) | payer MEDICARE | LOC: HHH 11:32 | PROVIDERS: ATTEND Family Medicine | DX: D64.9 Anemia, unspecified (principal); E11.9 Type 2 diabetes mellitus without complications; M15.0 Primary generalized (osteo)arthritis; Z79.899 Other long term (current) drug therapy ==

== ENCOUNTER → 2020-07-23 | Outpatient (CLI) | payer MEDICARE | LOC: HHH 11:56 | PROVIDERS: ATTEND Internal Medicine Rheumatology | DX: Z79.899 Other long term (current) drug therapy (principal); M35.03 Sjogren syndrome with myopathy; M15.0 Primary generalized (osteo)arthritis; E55.9 Vitamin D deficiency, unspecified; E53.8 Deficiency of other specified B group vitamins; C61 Malignant neoplasm of prostate ==

== ENCOUNTER → 2020-07-30 | Outpatient (CLI) | payer MEDICARE | LOC: HHH 11:26 | PROVIDERS: ATTEND Family Medicine | DX: E78.5 Hyperlipidemia, unspecified (principal) ==

== ENCOUNTER → 2020-09-02 | Outpatient (CLI) | payer MEDICARE | LOC: GMAL 14:25 | PROVIDERS: ATTEND Family Medicine | DX: R10.84 Generalized abdominal pain (principal) ==